=== PATIENT | male | born 1970 | race Caucasian/White ===

== ENCOUNTER 2016-11-29 14:34 | Day surgery (SDC) | payer OTHER ==
[2016-11-25 15:37] VITALS: BMI 31.7
[~2016-11-29 14:34] MED LIST: SODIUM CHLORIDE 0.9% 1,000 ML IV SCH; ceFAZolin 1,000 MG in SODIUM CHLORIDE 0.9% IRRIGATIO 250 ML IRRIGATION ONE; ceFAZolin 2 GM in SODIUM CHLORIDE 0.9% 100 ML IVPB ONE
[2016-11-29 15:24] LABS: Basophils # (A) 0.1 k/uL (0-0.2); Basophils % (A) 1 %; CH 25.8; Eosinophils # (A) 0.2 k/uL (0-0.7); Eosinophils % (A) 2 %; HCT 45.1 % (39.0-53.0); HDW 2.75; HGB 14.8 gm/dL (13.0-17.5); Luc # (Auto) 0.18; Luc % (Auto) 2; Lymphocytes # (A) 2.8 k/uL (1.0-4.8); Lymphocytes % (A) 32 %; MCH 25.9 pg (25.0-35.0); MCHC 32.8 g/dL (31.0-37.0); MCV 78.9 fL (80.0-100.0); Mean Platelet Volume 6.7; Monocytes # (A) 0.5 k/uL (0-1.0); Monocytes % (A) 5 %; Neutrophils # (A) 5.1 k/uL (1.3-7.7); Neutrophils % (A) 59 %; RBC 5.72 m/uL (4.30-5.90); RDW 12.9 % (11.5-15.5); WBC 8.8 k/uL (3.8-10.6); WBC (Perox) 8.76
[2016-11-29] MEDS ORDERED: MIDAZOLAM 2 MG/2 ML VIAL ONE (18:00)
[2016-11-29] MEDS ORDERED: MIDAZOLAM 2 MG/2 ML VIAL IV ONE (18:08)
[2016-11-29] MEDS ORDERED: LIDOCAINE 1% INJ 10MG/ML (20 ML MDV) SQ ONE (18:12)
[2016-11-29] MEDS ORDERED: fentaNYL (PF) 50 MCG/ML 2 ML AMP ONE (18:14)
[2016-11-29] MEDS ORDERED: fentaNYL (PF) 50 MCG/ML 2 ML AMP IV ONE (18:15)
[2016-11-29] MEDS ORDERED: HYDROcodone/APAP 5-325MG 1 EACH TAB PO PRN (18:57)
[2016-11-29] MEDS ORDERED: ACETAMINOPHEN TAB 325 MG TAB PO PRN (18:57)
[2016-11-29] MEDS ORDERED: CYCLOBENZAPRINE 10 MG TAB PO PRN (18:59)
[2016-11-29] MEDS ORDERED: ACETAMINOPHEN IV (For NPO) 1,000 MG in EMPTY BAG 1 BAG IVPB ONE (20:00)
--- NOTE | 2016-11-29 20:14 | PCN ---
DATE OF PROCEDURE: Mr. Jose Barrera has a history of sick sinus syndrome and recurrent syncope. He underwent dual-chamber pacemaker implantation in 2009 when he presented with syncope. His device is at end-of-life, EOL, and he is brought in for dual-chamber pacemaker generator change. The patient was brought to the EP lab in a fasting state. Written informed consent was obtained prior to the procedure. The left shoulder area was prepped and draped as per protocol. Lidocaine 1% was used for local anesthesia. A 4 cm incision was made parallel to the previous incision and carried down to the level of the generator. The generator was explanted and partial capsulectomy was performed. The pocket was irrigated. Hemostasis was assured. The old generator was explanted. This was a [employer] model #P150VR, serial #[id number], normal battery depletion. The newly implanted dual-chamber pacemaker generator was [employer]v Accolade DR, model #L310, serial #[id number]. The device was placed in the subfascial pocket. The wound was closed in 3 layers and dressed per protocol. The leads were interrogated. The chronic atrial lead was a CapSure Fix Novus bipolar lead, model #5076, serial #[id number]. The P-waves were 6.3 mV, pacing threshold 0.8 v at 0.5 ms. Pacing impedance of 503 ohms. The RV lead was a CapSure Fix Novus, model#5076, serial #[id number]. R-waves 23 mV, pacing threshold 0.9 v at 0.5 ms. Pacing impedance of 529 ohms. The device was then programmed to DDD mode 50:140 ( )m with a long AV delay with AV ( ) to minimize RV pacing. Patient predominantly requires atrial pacing intermittently. He has been pacing the atrium about 12% of the time for sick sinus syndrome. He tolerated the procedure well without any acute complications.
--- NOTE | 2016-11-29 20:26 | LTR ---
November 29, 2016 RE: Jose Barrera Dear Cristobal, I had the pleasure of seeing Mr. Jose Barrera in electrophysiology followup. As you know, Mr. Barrera has sick sinus syndrome with syncope, status post dual-chamber pacemaker implantation which has now a depleted battery. He underwent successful dual-chamber pacemaker generator change without any acute complications. He will remain in the hospital for 24 hours and will receive IV antibiotics. All his home medications will be continued without any changes and he will follow up in the pacemaker clinic in about 5 days. He will continue to follow up with you for his other medical needs. Thank you for entrusting me with the care of your patient. Warm regards. Sincerely, MYRANDA TATE MD
[2016-11-29] MEDS ORDERED: ATORVASTATIN 40 MG TAB PO SCH (21:00)
[2016-11-29] MEDS: GABAPENTIN 300 MG CAP PO SCH (21:01)
[2016-11-29] MEDS: ceFAZolin 2 GM in SODIUM CHLORIDE 0.9% 100 ML IVPB SCH (23:36)
[2016-11-30] MEDS: ceFAZolin 2 GM in SODIUM CHLORIDE 0.9% 100 ML IVPB SCH ×3 (05:24→17:16)
[2016-11-30] MEDS ORDERED: LEVOTHYROXINE 75 MCG TAB PO SCH (06:30)
--- NOTE | 2016-11-30 08:17 | P.DS ---
Providers Attending physician: Pritesh Gomez Primary care physician: [facility] Course: Patient is doing well. No chest discomfort mild soreness over the pacemaker generator site. Breath sounds are normal no cough no phlegm no dizziness no chest pain On examination Normal heart sounds normal S1 normal S2 no murmurs no gallops Breath sounds are normal no rhonchi no crackles Soft abdomen No hematoma the pacemaker generator site Impression Sick sinus syndrome with syncope status post permanent pacemaker Pacemaker at EOL Successful generator change yesterday Dyslipidemia Plan Discharge home after IV antibiotics and follow-up in 5 days in the pacemaker clinic in follow-up with Dr. Motley in 4 months Plan - Discharge Summary Discharge Medication List Atorvastatin [Lipitor] 40 mg PO HS 07/02/14 [History] Levothyroxine Sodium [Synthroid] 75 mcg PO DAILY 07/02/14 [History] Lisinopril [Zestril] 10 mg PO DAILY 07/02/14 [History] Cyclobenzaprine [Flexeril] 10 mg PO TID PRN 09/03/15 [History] Fluticasone Propionate [Flonase Allergy Relief] 1 spray EA NOSTRIL DAILY PRN [History] Gabapentin [Neurontin] 600 mg PO BID 09/03/15 [History] HYDROcodone/APAP 7.5-325MG [[place] 7.5-325] 1 tab PO Q6HR PRN 09/03/15 [History] Ibuprofen [Motrin] 800 mg PO Q8HR PRN 09/03/15 [History] Activity/Diet/Wound Care/Special Instructions: PATIENT EDUCATION MATERIAL Instructions following a heart rhythm device implant. 1. Keep dressing DRY for ONE week. You may cover the area with Saran or Cling Wrap, prior to a shower. 2. The dressing will be removed after one week in the Device Clinic @ [facility]. Absorbable sutures were used to close the wound. 3. Avoid raising the [left] arm above the shoulder level. [1 week restriction] 4. Avoid arm movements, like backscratching, rubbing the head, or pulling on a cord. (1 weeks restriction) 5. Gentle range of motion movements of the shoulder, closest to the incision should be performed to avoid a frozen shoulder. (Pendulum exercises of the shoulder) 6. The opposite arm may be used freely. 7. Avoid driving for 7 days. 8. Avoid activities such as golfing, swimming, weed whacking, lifting more than 10 pounds weight, bowling, gymnastics and weight training/lifting. (6 weeks restriction) 9. Activities such as wood chopping with an axe, pull-ups in the gymnasium, power lifting, arc-welding, being close to home induction cooktops will always be a problem. In case of any problems, please call [facility], [place], @ [phone], Attention: Device Clinic Follow-up in 5 days in the device clinic Follow Dr. Motley and the device clinic in about 4 months once again Continue all home medications without any changes
[2016-11-30] MEDS: GABAPENTIN 300 MG CAP PO SCH (08:18)
[2016-11-30 08:30] VITALS: RESP 18
[2016-11-30] MEDS ORDERED: LISINOPRIL 10 MG TAB PO SCH ×2 (09:00→21:00)
[2016-11-30] MEDS ORDERED: ATORVASTATIN 40 MG TAB PO SCH (09:15)
[2016-11-30 15:47] VITALS: BP 164/102; PULSE 86; TEMP 99.4
--- NOTE | 2016-12-01 08:14 | P.PCN ---
Preoperative Diagnosis: Patient underwent EP procedure under conscious sedation/moderate sedation, monitoring of the level of consciousness and physiologic parameters including but not limited to vital signs and oxygenation. Start time: 1811 Stop time 1845
== END 2016-11-30 18:45 | disposition home or self-care (01) ==
LOC: CATHEP 14:34 → 3OBS 18:48 → CATHEP 11-30 18:45
PROVIDERS: ATTEND Internal Medicine Clinical Cardiac Electrophysiology
DX: Z45.010 Encounter for checking and testing of cardiac pacemaker pulse generator [battery] (principal); I49.5 Sick sinus syndrome; I10 Essential (primary) hypertension; E78.5 Hyperlipidemia, unspecified; Z79.1 Long term (current) use of non-steroidal anti-inflammatories (NSAID); Z79.891 Long term (current) use of opiate analgesic; Z79.899 Other long term (current) drug therapy; Z87.891 Personal history of nicotine dependence
CPT/HCPCS: 33228; 85025; 99156; 99157 ×2; C1785; J2250; J0690 ×3; J2001; J3010; J0131

== ENCOUNTER → 2017-05-09 | Outpatient (CLI) | payer OTHER ==
--- NOTE | 2017-05-10 07:39 | CT ---
EXAMINATION TYPE: CT lumbar spine wo con DATE OF EXAM: 05/09/2017 COMPARISON: NONE HISTORY: Low back pain worsening over the past year CT DLP: 812 mGycm CONTRAST: Unenhanced CT of the lumbar spine is performed. Unenhanced CT of the lumbar spine was performed. Bone and soft tissue window settings are submitted as well as coronal and sagittal reconstructions. L1-L2: Normal disc space height. No disc herniation protrusion or central stenosis. No facet joint arthropathy. No evidence for foraminal encroachment. L2-L3: Normal disc space height. No disc herniation protrusion or central stenosis. No facet joint arthropathy. No evidence for foraminal encroachment. L3-L4: Mild degenerative disc space narrowing. Circumferential disc bulge with mild effacement ventra l thecal sac. There appears to be bilateral lateral recess stenosis. No prince central stenosis apprec iated at this time. Neural foramina are patent bilaterally. L4-L5: Mild degenerative disc space narrowing. Broad-based disc bulge posteriorly effaces the ventral thecal sac. There is hypertrophy of the ligamentum flavum as well as mild facet joint arthropathy re sulting in mild central stenosis and bilateral lateral recess stenosis. Mild bilateral foraminal encr oachment is identified. L5-S1: Mild degenerative disc space narrowing. Broad-based right paracentral disc bulge effaces the v entral thecal sac and results in right lateral recess stenosis and right foraminal encroachment. No paraspinal masses are identified. Lumbar segments are free if fracture. IMPRESSION: 1. Degenerative disc disease as discussed. 2. Disc bulging at multiple levels greatest at L4-5 where there is evidence of central stenosis. See above.
== END | disposition home or self-care (01) ==
LOC: RADCTMAIN 19:14
PROVIDERS: ATTEND Family Medicine
DX: M48.06 Spinal stenosis, lumbar region (principal); M51.16 Intervertebral disc disorders with radiculopathy, lumbar region
CPT/HCPCS: 72131

== ENCOUNTER 2017-11-29 06:26 | Emergency (ER) | payer OTHER ==
[2017-11-29] MEDS ORDERED: HYDROmorphone 0.5 MG/0.5 ML SYRINGE IVP STA (06:30)
[2017-11-29] MEDS ORDERED: SODIUM CHLORIDE 0.9% 1,000 ML IV STA ×2 (06:30→09:36)
[2017-11-29] MEDS ORDERED: ONDANSETRON 4 MG/2 ML VIAL IVP STA (06:30)
--- NOTE | 2017-11-29 06:34 | ED ---
General Adult HPI - General Source: RN notes reviewed <Tip Mcelroy - Last Filed: 11/29/17 07:21> <Tip Mcdonald - Last Filed: 11/29/17 09:35> - General Stated complaint: abd pain Time Seen by Provider: 11/29/17 06:26 - History of Present Illness Initial comments: This is a 47-year-old male who presents emergency Department complaining of abdominal discomfort nausea vomiting and diarrhea since last night at about 5 PM. Patient denies any fever chills. Patient states the abdominal pain is in the epigastric region. Patient denies any blood in the vomitus patient denies any blood in the diarrhea. Patient denies any previous surgery. Patient denies any drinking history. Patient does have a pacer defibrillator in place. Patient denies any back pain. Patient denies any dysuria hematuria urinary frequency. Patient denies headache patient denies any numbness or weakness. ( Tip Mcelroy) - Related Data Home Medications Medication Instructions Recorded Confirmed Atorvastatin [Lipitor] 40 mg PO HS 07/02/14 11/29/17 Lisinopril [Zestril] 10 mg PO HS 07/02/14 11/29/17 Cyclobenzaprine [Flexeril] 10 mg PO TID PRN 09/03/15 11/29/17 HYDROcodone/APAP 7.5-325MG [[place] 1 tab PO Q8H PRN 09/03/15 11/29/17 7.5-325] Ibuprofen [Motrin] 800 mg PO Q8HR PRN 09/03/15 11/29/17 Gabapentin 800 mg PO BID 11/29/17 11/29/17 Levothyroxine Sodium [Synthroid] 100 mcg PO DAILY 11/29/17 11/29/17 Allergies Allergy/AdvReac Type Severity Reaction Status Date / Time No Known Allergies Allergy Verified 11/29/17 07:36 Review of Systems ROS Other: All systems not noted in ROS Statement are negative. <Tip Mcelroy - Last Filed: 11/29/17 07:21> ROS Other: All systems not noted in ROS Statement are negative. <Tip Mcdonald - Last Filed: 11/29/17 09:35> ROS Statement: Those systems with pertinent positive or pertinent negative responses have been documented in the HPI. Past Medical History Past Medical History: Osteoarthritis (OA), Thyroid Disorder Additional Past Medical History / Comment(s): See Dr Gomez's H&P, DDD, pain mid to lower back with numbness to bilateral legs. History of Any Multi-Drug Resistant Organisms: None Reported Past Surgical History: Orthopedic Surgery, Pacemaker Additional Past Surgical History / Comment(s): left elbow reconstruction as a child, surgery for back lipoma on 06/23/14. Past Anesthesia/Blood Transfusion Reactions: Motion Sickness Additional Past Anesthesia/Blood Transfusion Reaction / Comment(s): no hx blood transfusion Type of Cardiac Device: Permanent Pacemaker Device Placement Date:: 2009 Smoking Status: Former smoker - Past Family History Father Additional Family Medical History / Comment(s): at age 26 from heart problems Mother Family Medical History: No Reported History Additional Family Medical History / Comment(s): states had cabg x3 <Tip Mcelroy - Last Filed: 11/29/17 07:21> General Exam <Tip Mcelroy - Last Filed: 11/29/17 07:21> <Tip Mcdonald - Last Filed: 11/29/17 09:35> - General Exam Comments Initial Comments: GENERAL: Patient is well-developed and well-nourished. Patient is nontoxic and well- hydrated and is in mild distress. ENT: Neck is soft and supple. No significant lymphadenopathy is noted. Oropharynx is clear. Dry mucous membranes. EYES: The sclera were anicteric and conjunctiva were pink and moist. Extraocular movements were intact and pupils were equal round and reactive to light. Eyelids were unremarkable. PULMONARY: Unlabored respirations. Good breath sounds bilaterally. No audible rales rhonchi or wheezing was noted. CARDIOVASCULAR: There is a regular rate and rhythm without any murmurs gallops or rubs. ABDOMEN: Mild epigastric abdominal pain SKIN: Skin is clear with no lesions or rashes and otherwise unremarkable. NEUROLOGIC: Patient is alert and oriented x3. Cranial nerves II through XII are grossly intact. Motor and sensory are also intact. Normal speech, volume and content. Symmetrical smile. MUSCULOSKELETAL: Normal extremities with adequate strength and full range of motion. No lower extremity swelling or edema. No calf tenderness. LYMPHATICS: No significant lymphadenopathy is noted PSYCHIATRIC: Normal psychiatric evaluation. Normal interpersonal interactions appears functionally intact in deals appropriately with others. No signs of depression. No signs of anxiety. (Tip Mcelroy) Vital Signs 11/29/17 11/29/17 06:39 08:25 Temperature 97.3 F L Pulse Rate 65 68 Respiratory 22 16 Rate Blood Pressure 159/90 185/92 O2 Sat by Pulse 100 100 Oximetry Medical Decision Making - Lab Data Result diagrams: 11/29/17 06:31 <Tip Mcelroy - Last Filed: 11/29/17 07:21> - Lab Data Result diagrams: 11/29/17 06:31 11/29/17 08:24 <Tip Mcdonald - Last Filed: 11/29/17 09:35> - Medical Decision Making EKG shows a normal sinus rhythm at 62 bpm PA interval is 156 dresses 84 Q-T intervals 426 QTC is 432. Patient's EKG shows no ST segment elevation or depression or T wave abnormalities are noted. Dr. Mcdonald will be taking over the care of this patient at 7 AM (Tip Mcelroy) - Lab Data Lab Results 11/29/17 11/29/17 11/29/17 Range/Units 06:31 08:24 08:45 WBC 21.1 H (3.8-10.6) k/uL RBC 6.45 H (4.30-5.90) m/uL Hgb 16.1 (13.0-17.5) gm/dL Hct 51.2 (39.0-53.0) % MCV 79.3 L (80.0-100.0) fL MCH 24.9 L (25.0-35.0) pg MCHC 31.5 (31.0-37.0) g/dL RDW 13.6 (11.5-15.5) % Plt Count 310 (150-450) k/uL Neutrophils % 92 % Lymphocytes % 4 % Monocytes % 3 % Eosinophils % 1 % Basophils % 0 % Neutrophils # 19.5 H (1.3-7.7) k/uL Lymphocytes # 0.8 L (1.0-4.8) k/uL Monocytes # 0.6 (0-1.0) k/uL Eosinophils # 0.1 (0-0.7) k/uL Basophils # 0.0 (0-0.2) k/uL Sodium 141 (137-145) mmol/L Potassium 4.4 (3.5-5.1) mmol/L Chloride 104 (98-107) mmol/L Carbon Dioxide 19 L (22-30) mmol/L Anion Gap 18 mmol/L BUN 23 H (9-20) mg/dL Creatinine 0.97 (0.66-1.25) mg/dL Est GFR (MDRD) Af Amer >60 (>60 ml/min/1.73 sqM) Est GFR (MDRD) Non-Af >60 (>60 ml/min/1.73 sqM) Glucose 125 H (74-99) mg/dL Calcium 10.2 (8.4-10.2) mg/dL Total Bilirubin 1.1 (0.2-1.3) mg/dL AST 32 (17-59) U/L ALT 30 (21-72) U/L Alkaline Phosphatase 75 (38-126) U/L Total Protein 7.6 (6.3-8.2) g/dL Albumin 4.8 (3.5-5.0) g/dL Amylase 39 (30-110) U/L Lipase 31 (23-300) U/L Urine Color Yellow Urine Appearance Clear (Clear) Urine pH 7.0 (5.0-8.0) Ur Specific [place] 1.020 (1.001-1.035) Urine Protein 1+ H (Negative) Urine Glucose (UA) Negative (Negative) Urine Ketones 1+ H (Negative) Urine Blood Trace H (Negative) Urine Nitrite Negative (Negative) Urine Bilirubin Negative (Negative) Urine Urobilinogen <2.0 (<2.0) mg/dL Ur Leukocyte Esterase Negative (Negative) Urine RBC 3 (0-5) /hpf Urine WBC 1 (0-5) /hpf Cellular Casts 1 (0) /lpf Urine Mucus Rare H (None) /hpf Disposition <Tip Mcelroy - Last Filed: 11/29/17 07:21> <Tip Mcdonald - Last Filed: 11/29/17 09:35> Clinical Impression: Abdominal pain, Gastroenteritis Disposition: HOME SELF-CARE Condition: Good Instructions: Gastroenteritis (ED) Referrals: Omayra Pastor III, MD [Primary Care Provider] - 1-2 days
[2017-11-29 06:43] VITALS: TEMP 97.3
[2017-11-29 06:51] LABS: Basophils % (A) 0 %; Eosinophils # (A) 0.1 k/uL (0-0.7); Eosinophils % (A) 1 %; HCT 51.2 % (39.0-53.0); HGB 16.1 gm/dL (13.0-17.5); Lymphocytes # (A) 0.8 k/uL (1.0-4.8); Lymphocytes % (A) 4 %; MCH 24.9 pg (25.0-35.0); MCHC 31.5 g/dL (31.0-37.0); MCV 79.3 fL (80.0-100.0); Mean Platelet Volume 8.1; Monocytes # (A) 0.6 k/uL (0-1.0); Monocytes % (A) 3 %; Neutrophils # (A) 19.5 k/uL (1.3-7.7); Neutrophils % (A) 92 %; Platelet Count 310 k/uL (150-450); RBC 6.45 m/uL (4.30-5.90); RDW 13.6 % (11.5-15.5); WBC 21.1 k/uL (3.8-10.6)
--- NOTE | 2017-11-29 07:32 | XR ---
EXAMINATION TYPE: XR KUB DATE OF EXAM: 11/29/2017 7:25 AM CLINICAL HISTORY: Abdominal pain and vomiting for 2 days. TECHNIQUE: Two Upright KUB images of the abdomen are obtained. COMPARISON: None. FINDINGS: Scattered gas is seen in non-distended stomach and small bowel loops. Gas is seen in non-di stended colon. There is dual lead pacemaker. Lung bases are clear. No pneumoperitoneum is identified. No suspicious calcifications are seen. Visualized osseous structures are intact. IMPRESSION: Overall nonobstructive bowel gas pattern.
[2017-11-29 08:25] VITALS: RESP 16
[2017-11-29] MEDS ORDERED: RX INFO: IV CONTRAST WAS GIVEN 1 EACH MISC MISCELLANE PRN (08:33)
[2017-11-29 08:53] LABS: ALT 30 U/L (21-72); AST 32 U/L (17-59); Albumin 4.8 g/dL (3.5-5.0); Alkaline Phosphatase 75 U/L (38-126); Amylase 39 U/L (30-110); Anion Gap 18 mmol/L; Blood Urea Nitrogen 23 mg/dL (9-20); Calcium 10.2 mg/dL (8.4-10.2); Carbon Dioxide 19 mmol/L (22-30); Chloride 104 mmol/L (98-107); Glucose 125 mg/dL (74-99); Lipase 31 U/L (23-300); Potassium 4.4 mmol/L (3.5-5.1); Sodium 141 mmol/L (137-145); Total Bilirubin 1.1 mg/dL (0.2-1.3); Total Protein 7.6 g/dL (6.3-8.2)
[2017-11-29 08:55] LABS: Appearance,Urine Clear (Clear); Bilirubin,Urine Negative (Negative); Blood,Urine Trace (Negative); Cellular Casts,Urine 1 /lpf (0); Color,Urine Yellow; Glucose,Urine (UA) Negative (Negative); Ketones,Urine 1+ (Negative); Leukocyte Esterase,Urine Negative (Negative); Mucus,Urine Rare /hpf; Nitrite,Urine Negative (Negative); Protein,Urine 1+ (Negative); RBC,Urine 3 /hpf (0-5); Urobilinogen,Urine <2.0 mg/dL (<2.0); WBC,Urine 1 /hpf (0-5)
--- NOTE | 2017-11-29 09:32 | CT ---
EXAMINATION TYPE: CT abdomen pelvis w con DATE OF EXAM: 11/29/2017 COMPARISON: NONE HISTORY: Abdominal pain CT DLP: 1518 mGycm CONTRAST: CT scan of the abdomen and pelvis is performed without Oral Contrast and with IV Contrast, patient in jected with 100 ml mL of Omnipaque 300. FINDINGS: LUNG BASES-: No visible nodule. No infiltrate. LIVER/GB: No calcified gallstones. No space occupying hepatic lesion. Biliary tree is of normal ca liber. PANCREAS: No inflammation. No distinct mass. SPLEEN: No splenic enlargement. No lesion seen. ADRENALS: No nodule. No thickening. KIDNEYS/BLADDER: No hydronephrosis. No nephrolithiasis. No distinct renal mass. Urinary bladder g rossly unremarkable. BOWEL: Normal appendix. Normal bowel caliber. Mild small bowel wall thickening may reflect a mild en teritis. Sigmoid diverticulosis without diverticulitis. GENITAL ORGANS: No gross abnormality. LYMPH NODES: No greater than 1cm abdominal or pelvic lymph nodes are appreciated. AORTA: No significant abnormality. OSSEOUS STRUCTURES: No significant abnormality is seen. OTHER: No significant additional abnormality is seen. IMPRESSION: 1. Correlate for mild small bowel enteritis.
[2017-11-29] MEDS ORDERED: FAMOTIDINE 20 MG/2 ML VIAL IV STA (09:36)
[2017-11-29] MEDS ORDERED: MORPHINE SULFATE 4 MG/ML SYRINGE IVP STA (09:36)
[2017-11-29 11:01] VITALS: BP 194/93; PULSE 73
== END 2017-11-29 11:01 | disposition home or self-care (01) ==
LOC: EC 06:26
DX: K52.9 Noninfective gastroenteritis and colitis, unspecified (principal); E07.9 Disorder of thyroid, unspecified; Z87.891 Personal history of nicotine dependence; Z79.899 Other long term (current) drug therapy; Z95.0 Presence of cardiac pacemaker
CPT/HCPCS: 36415; 93005; 80053; 82150; 83690; 85025; 81001; 74018; 74177; 99285; 96374; 96375 ×3; 96361 ×4; J2270; J2405; Q9967; J1170

== ENCOUNTER 2018-04-10 10:36 | Day surgery (SDC) | payer OTHER ==
[2018-04-05 08:52] VITALS: BMI 29.5
[2018-04-10 11:58] LABS: Basophils # (A) 0.1 k/uL (0-0.2); Basophils % (A) 1 %; Eosinophils # (A) 0.3 k/uL (0-0.7); Eosinophils % (A) 4 %; HCT 43.2 % (39.0-53.0); HGB 14.3 gm/dL (13.0-17.5); Lymphocytes # (A) 2.5 k/uL (1.0-4.8); Lymphocytes % (A) 31 %; MCH 25.7 pg (25.0-35.0); MCHC 33.1 g/dL (31.0-37.0); MCV 77.7 fL (80.0-100.0); Mean Platelet Volume 6.8; Monocytes # (A) 0.5 k/uL (0-1.0); Monocytes % (A) 6 %; Neutrophils # (A) 4.6 k/uL (1.3-7.7); Neutrophils % (A) 57 %; Platelet Count 211 k/uL (150-450); RBC 5.56 m/uL (4.30-5.90); RDW 13.7 % (11.5-15.5); WBC 8.1 k/uL (3.8-10.6)
[2018-04-10] MEDS ORDERED: IV FLUID CONTINUATION 1,000 ML IV ONE (12:12)
[2018-04-10] MEDS ORDERED: ISOPROTERENOL 250 MCG/1.25 ML SYR IV ONE (12:18)
[2018-04-10] MEDS ORDERED: fentaNYL (PF) 50 MCG/ML 2 ML AMP ONE (12:18)
[2018-04-10] MEDS ORDERED: MIDAZOLAM 2 MG/2 ML VIAL ONE (12:18)
[2018-04-10] MEDS ORDERED: ceFAZolin IN SWFI 2 GM/20 ML SYRINGE IVP STA (12:22)
[2018-04-10] MEDS ORDERED: LIDOCAINE 2% SYG (PF) 100 MG/5 ML MISCELLANE ONE (12:59)
[2018-04-10] MEDS ORDERED: LACTATED RINGERS 1,000 ML IV ONE (13:50)
[2018-04-10] MEDS ORDERED: IOPAMIDOL-250 50ML BTL IV ONE (14:01)
[2018-04-10] MEDS ORDERED: ACETAMINOPHEN TAB 325 MG TAB PO PRN (14:23)
[2018-04-10] MEDS ORDERED: HYDROcodone/APAP 5-325MG 1 EACH TAB PO PRN (14:23)
[2018-04-10] MEDS ORDERED: ACETAMINOPHEN IV (For NPO) 1,000 MG in EMPTY BAG 1 BAG IVPB ONE (14:23)
[2018-04-10] MEDS ORDERED: FLUTICASONE 50MCG/SPRAY NASAL 16GM EA NOSTRIL PRN (14:27)
[2018-04-10] MEDS ORDERED: CYCLOBENZAPRINE 10 MG TAB PO PRN (14:27)
[2018-04-10 15:12] LABS: Anion Gap 6 mmol/L; Blood Urea Nitrogen 17 mg/dL (9-20); Calcium 8.7 mg/dL (8.4-10.2); Carbon Dioxide 25 mmol/L (22-30); Chloride 110 mmol/L (98-107); Glucose 88 mg/dL (74-99); Potassium 4.3 mmol/L (3.5-5.1); Sodium 141 mmol/L (137-145)
--- NOTE | 2018-04-10 19:05 | CE ---
CARDIAC ELECTROPHYSIOLOGY REPORT Jose Barrera is a 47-year-old male patient who has had supraventricular tachycardia, symptomatic, with dizziness and has had breakthrough episodes on flecainide and AV jeffrey blocking drugs. He is not tolerating high doses of flecainide, either. He is brought in for a diagnostic EP study and possible radiofrequency ablation. Patient was brought to the EP lab in a fasting state. Written informed consent was obtained prior to the procedure. The right groin was prepped and draped as per protocol. Three venous sheaths were placed in the right femoral vein. Via these, 3 diagnostic catheters were positioned in the right heart (high right atrium, His bundle, RV and later in the coronary sinus). Sinus cycle length 851 milliseconds. WA interval 180 milliseconds. QRS 93 milliseconds. QT 380 milliseconds. AH interval 89 milliseconds. HV interval 46 milliseconds. Sinus node recovery times at 600 milliseconds was 1280 milliseconds. Corresponding corrected sinus node recovery time was normal. AV node Wenckebach block 360 milliseconds, VA Wenckebach block 420 milliseconds. No evidence of slow pathway conduction. No delta waves. Atrial extrastimulation and atrial burst stimulation was performed with atrial extrastimulation up to triple extrastimuli from the high right atrium and from the coronary sinus. No tachycardia was induced. Tachycardia was induced with burst stimulation but preferably after Isuprel was started at 2 mcg. It was also easily inducible at a paced cycle length of 360 milliseconds from the high right atrium on 5 mcg of Isuprel. CS pacing was performed. RV pacing was performed. The tachycardia was non-sustained and would terminate spontaneously ending with V. The P waves were at the terminal end of the previous T-wave and therefore the P-wave morphology was not very evident, but it was definitely not a negative P wave in lead V1. His electrogram and the high right atrial electrograms were early electrograms. CS os was a bit late, but the activation pattern in the left atrium was concentric. Atrial fibrillation was also induced, and after 3 to 4 minutes it terminated spontaneously. At the end of the procedure, Isuprel was stopped and all catheters were removed. IMPRESSION: Diagnostic EP study revealing 1) inducible atrial fibrillation, 2) inducible atrial tachycardia, non-sustained, with a concentric activation in the coronary sinus poles in the high right atrium and the His bundle area almost similar in activation times. SUGGEST: 1. Pulmonary vein isolation using cryoablation. 2. Induction of atrial tachycardia on Isuprel with high right atrial pacing and radiofrequency ablation of atrial tachycardia at the same setting with Carto mapping. This procedure will be done with a combination cryo and Carto technique. This was discussed with the patient and his family. Therefore the plan is to start anticoagulation with either Coumadin or one of the newer agents at least 4 to 6 weeks before the planned PVI and atrial tachycardia ablation. During the atrial tachycardia ablation, atrial tachycardia will be induced and the right and the left atrium both will be mapped. MMODL / IJN: [id number] /
[2018-04-10] MEDS: VERAPAMIL SR 180 MG TABLET.ER PO SCH (20:08)
[2018-04-10] MEDS: FLECAINIDE 50 MG TAB PO SCH (20:08)
[2018-04-10] MEDS ORDERED: ATORVASTATIN 40 MG TAB PO SCH (21:00)
[2018-04-10 21:10] VITALS: RESP 16
[2018-04-10] MEDS ORDERED: LOSARTAN 50 MG TAB PO STA (22:42)
[2018-04-11 03:56] VITALS: TEMP 98.4
[2018-04-11] MEDS ORDERED: LEVOTHYROXINE 100 MCG TAB PO SCH (06:30)
[2018-04-11] MEDS: LACTATED RINGERS 1,000 ML IV SCH ×2 (07:54→07:55)
[2018-04-11] MEDS: SODIUM CHLORIDE 0.9% 1,000 ML IV SCH ×2 (07:54→07:55)
[2018-04-11 08:10] VITALS: BP 158/95; PULSE 80
[2018-04-11] MEDS: FLECAINIDE 50 MG TAB PO SCH (09:01)
[2018-04-11] MEDS: VERAPAMIL SR 180 MG TABLET.ER PO SCH (09:01)
--- NOTE | 2018-04-11 13:35 | P.DS ---
Providers Attending physician: Pritesh Gomez Primary care physician: O[facility] Course: Patient is doing well today his blood pressures more in the normal range. Metoprolol was discontinued and calcium channel lexii was begun. Recommended was continued. He underwent a diagnostic EP study which revealed atrial fibrillation as well as atrial tachycardia. He'll be scheduled for a hybrid procedure with cryoablation and CARTO mapping in the future after starting anticoagulation for at least 4-6 weeks prior He denies any chest discomfort no dizziness lightheadedness palpitations. His breathing well his groins of healed well Vitals are stable Blood pressure 135/87 mmHg pulse rate in the 80s afebrile 98.4F head And neck examination is normal Heart sounds are normal Abdomen soft Groins revealed well no hematoma Impression Sick sinus syndrome status post pacemaker implantation the past Paroxysmal atrial fibrillation Paroxysmal atrial tachycardia, symptomatic Plan discharge home on calcium channel lexii discontinue beta blockers scheduled cryoablation of the pulmonary veins and CARTO mapping for atrial tachycardia and ablation. Anticoagulate for 6 weeks prior Patient Condition at Discharge: Stable Plan - Discharge Summary Discharge Rx Participant: No New Discharge Prescriptions: New Verapamil Sr [Isoptin Sr] 180 mg PO DAILY #90 tab Discontinued Metoprolol Succinate [Toprol Xl] 50 mg PO HS No Action Atorvastatin [Lipitor] 40 mg PO HS Cyclobenzaprine [Flexeril] 10 mg PO TID PRN PRN Reason: Muscle Spasm Ibuprofen [Motrin] 800 mg PO TID HYDROcodone/APAP 7.5-325MG [[place] 7.5-325] 1 tab PO Q8H PRN PRN Reason: Pain Levothyroxine Sodium [Synthroid] 100 mcg PO QAM Fluticasone Nasal [place] [Flonase Nasal [place]] 1 spray EA NOSTRIL DAILY PRN PRN Reason: Nasal Congestion Flecainide Acetate 50 mg PO BID Discharge Medication List Atorvastatin [Lipitor] 40 mg PO HS 07/02/14 [History] Cyclobenzaprine [Flexeril] 10 mg PO TID PRN 09/03/15 [History] HYDROcodone/APAP 7.5-325MG [[place] 7.5-325] 1 tab PO Q8H PRN 09/03/15 [History] Ibuprofen [Motrin] 800 mg PO TID 09/03/15 [History] Levothyroxine Sodium [Synthroid] 100 mcg PO QAM 11/29/17 [History] Flecainide Acetate 50 mg PO BID 04/05/18 [History] Fluticasone Nasal [place] [Flonase Nasal [place]] 1 spray EA NOSTRIL DAILY PRN 04/05 [History] Verapamil Sr [Isoptin Sr] 180 mg PO DAILY #90 tab 04/10/18 [Rx] Follow up Appointment(s)/Referral(s): Pritesh Gomez MD [STAFF PHYSICIAN] - 04/13/18 11:30 am Patient Instructions/Handouts: Electrophysiology Study (DC) Care Plan Goals (MU): Post EP study - Ablation instructions 1. Keep access sites dry for 2 days. 2. No heavy lifting or straining for 2 days. 3. Avoid bending the hips repeatedly for 2 days. 4. You may go up and down stairs slowly Call if the following is noted 1. Bleeding, increasing swelling or pain at the access sites. 2. Increasing chest discomfort, especially upon taking a deep breath. 3. Increasing shortness of breath, at rest or with exertion. 4. Undue cough / phlegm 5. Difficulty or pain while swallowing. 6. Pain or change in color in the extremities. 7. Fever, chills, rigors. 8. Increasing headache or neurologic symptoms. 9. Dizziness, fainting, palpitations Stop metoprolol start verapamil SR 180 mg by mouth daily continue flecainide Discharge Disposition: HOME SELF-CARE
== END 2018-04-11 10:43 | disposition home or self-care (01) ==
LOC: CATHEP 10:36 → 3OBS 14:01 → CATHEP 04-11 10:43
PROVIDERS: ATTEND Internal Medicine Clinical Cardiac Electrophysiology
DX: I47.1 Supraventricular tachycardia (principal); I49.5 Sick sinus syndrome; I48.0 Paroxysmal atrial fibrillation; Z95.0 Presence of cardiac pacemaker; Z87.891 Personal history of nicotine dependence; I10 Essential (primary) hypertension; E78.5 Hyperlipidemia, unspecified; E07.9 Disorder of thyroid, unspecified; Z79.890 Hormone replacement therapy; Z79.51 Long term (current) use of inhaled steroids; Z79.1 Long term (current) use of non-steroidal anti-inflammatories (NSAID); Z79.899 Other long term (current) drug therapy
CPT/HCPCS: 93623; 93620; 93613; 80048; 85025; C1894; C1769; C1730 ×2; J2250; J2001; J3010; J0690; Q9966; 93656

== ENCOUNTER 2018-06-26 09:47 | Day surgery (SDC) | payer OTHER ==
[2018-06-20 12:59] VITALS: BMI 31.0
[~2018-06-26 09:47] MED LIST changes: -ceFAZolin 1,000 MG in SODIUM CHLORIDE 0.9% IRRIGATIO 250 ML IRRIGATION ONE; -ceFAZolin 2 GM in SODIUM CHLORIDE 0.9% 100 ML IVPB ONE
[2018-06-26 10:28] LABS: Basophils # (A) 0.1 k/uL (0-0.2); Basophils % (A) 1 %; Eosinophils # (A) 0.2 k/uL (0-0.7); Eosinophils % (A) 3 %; HCT 46.5 % (39.0-53.0); HGB 15.1 gm/dL (13.0-17.5); Lymphocytes # (A) 2.5 k/uL (1.0-4.8); Lymphocytes % (A) 30 %; MCH 25.5 pg (25.0-35.0); MCHC 32.4 g/dL (31.0-37.0); MCV 78.7 fL (80.0-100.0); Mean Platelet Volume 7.1; Monocytes # (A) 0.6 k/uL (0-1.0); Monocytes % (A) 7 %; Neutrophils # (A) 4.8 k/uL (1.3-7.7); Neutrophils % (A) 58 %; Platelet Count 219 k/uL (150-450); RBC 5.91 m/uL (4.30-5.90); WBC 8.4 k/uL (3.8-10.6)
[2018-06-26 10:33] LABS: INR 3.2 (<1.2); Prothrombin Time 28.5 sec (9.0-12.0)
[2018-06-26] MEDS ORDERED: HEPARIN SODIUM,PORCINE 5,000 UNIT/ML 1 ML VIAL ONE (10:45)
[2018-06-26] MEDS ORDERED: MIDAZOLAM 2 MG/2 ML VIAL ONE (10:45)
[2018-06-26] MEDS ORDERED: SUCCINYLCHOLINE CHLORIDE 100 MG/5 ML SYR IV ONE (10:45)
[2018-06-26] MEDS ORDERED: fentaNYL (PF) 50 MCG/ML 2 ML AMP ONE (10:45)
[2018-06-26] MEDS ORDERED: PROTAMINE SULFATE 10 MG/ML 5 ML VIAL IV ONE (10:45)
[2018-06-26] MEDS ORDERED: ISOPROTERENOL 250 MCG/1.25 ML SYR IV ONE (10:45)
[2018-06-26] MEDS ORDERED: PROPOFOL 10 MG/ML 20 ML VIAL IV ONE (10:45)
[2018-06-26] MEDS ORDERED: LIDOCAINE 1% INJ 10MG/ML (20 ML MDV) ONE ×2 (10:45→11:07)
[2018-06-26] MEDS ORDERED: ceFAZolin IN SWFI 2 GM/20 ML SYRINGE IVP STA (10:47)
[2018-06-26] MEDS ORDERED: LIDOCAINE 1% INJ 10MG/ML (20 ML MDV) SQ ONE (11:32)
[2018-06-26] MEDS ORDERED: HEPARIN SOD,PORK IN 0.45% NACL 25,000 UNIT in 0.45% NACL 1 500ML.BAG IV ONE (11:40)
[2018-06-26] MEDS ORDERED: ACETAMINOPHEN TAB 325 MG TAB PO PRN (13:38)
[2018-06-26] MEDS ORDERED: ACETAMINOPHEN IV (For NPO) 1,000 MG in EMPTY BAG 1 BAG IVPB ONE (13:38)
--- NOTE | 2018-06-26 13:38 | P.PCN ---
Preoperative Diagnosis: Diagnosis Atrial fibrillation, paroxysmal symptomatic, refractory to therapy with flecainide Result Successful pulmonary vein isolation of all veins using cryo-ablation Complete entrance block as well as exit block in all 4 veins confirmed Time to effect in the left superior, left inferior and right superior veins less than 40-50 seconds No evidence for phrenic nerve injury Right-sided esophagus Esophageal deflection NO. Esophageal temperature monitoring performed Procedure details Patient was brought to the EP lab in a fasting state. Written informed consent was obtained prior to the procedure. Procedure performed under general anesthesia After initial muscle relaxant use, muscle relaxants were not given thereafter in order to assess phrenic nerve during procedure Dual-chamber pacemaker interrogated and reprogrammed the for the procedure. Pacemaker interrogated and reprogrammed once again at the very end of the procedure Patient prepped and draped as per protocol Full cryo-set up with standard preparation of the cryoablation tools done Femoral Venous access obtained on the right and left groins Venous and arterial Sheaths placed Diagnostic catheters for the high right atrium, phrenic nerve stimulation and pacing, His bundle, RV and coronary sinus placed Intracardiac echo catheter placed Long sheath placed in the right atrium Left and right transseptal catheterization performed under intracardiac echo guidance Intravenous heparin with aCT above 300 Later, catheter positioning and balloon positioning in the left atrium, under intracardiac echo guidance Comprehensive diagnostic EP study Drug infusion Coronary sinus pacing and recording Baseline measurements Sinus cycle length 691 ms, NV 131, QRS 88, QT 384 AH 75, HV 54 Sinus node recovery times at 600 ms were 899 ms. AV node Wenckebach block from the high right atrium 430 ms VA Wenckebach block greater than 600 ms at baseline On Isuprel infusion, AV node Wenckebach block improved to 260 ms when pacing from the coronary sinus Atrial pacing performed from the high right atrium and the coronary sinus RV pacing performed Transseptal catheterization performed RA pressure 16/6/11 LA pressure 19/8/14 Transseptal catheterization performed with standard sheath. The cryoablation sheath was then placed with an over the wire exchange without any acute complications. All 4 pulmonary veins were isolated in the following sequence: Left superior followed by left inferior followed by right superior followed by right inferior The cryo-ablation balloon was placed at the os of each vein 1.5 mL of IV dye was injected to confirm an occluded vein Goal during cryoablation was to achieve complete occlusion of the pulmonary vein , achieve -30C at 30 seconds and achieve -40C at 60 seconds and a time to affect of less than 60-90 seconds, . If not the balloon was repositioned to obtain this result After completion of Cryoblation with durations from 180-240 seconds, entrance block was confirmed with the Attain circular catheter in a roving fashion around the antrum of the pulmonary veins Phrenic nerve pacing was performed from the SVC, right innominate vein area and diaphragm voltage was monitored. Diaphragmatic contractions were also monitored manually for strength of contraction. Parameter goals for each cryo freeze -30C by 30 seconds -40C by 60 seconds Mediated between minus 40-55C Thaw time greater than 10 seconds Balloon visualized by intracardiac echo to ensure that the proximal one third was within the left atrium/antrum The esophagus was intubated. Esophageal Temperature monitoring with a CIRCA catheter formed. Esophageal deflection for hypothermia of the esophagus below 32C Left superior pulmonary vein Single 3 minute cryoablation. Time to effect in less than 40 seconds Left inferior pulmonary vein Single 3 minute cryoablation, time to effect in less than 40 seconds Right superior pulmonary vein, during phrenic nerve pacing 2 cryo lesions 3 minute cryoablation with a time to effect of less than 50 seconds Later a small PVP area. Upon reexamination Second 2 minute cryoablation performed complete isolation Right inferior pulmonary vein, during phrenic nerve pacing Single 3 minute cryoablation At the end of the procedure the Achieve catheter was once again used to check for entrance block as well as exit block Phrenic nerve stimulation was performed to confirm diaphragmatic stimulation the end of the procedure Cine fluoroscopy was performed at the very end of the procedure to confirm movement of both diaphragms with inspiration and expiration At the end of the procedure the patient was extubated Heparin was reversed Venous sheaths were removed and hemostasis assured Procedures performed (PVI - CRYO Ablation) Pacemaker, dual, interrogation with reprogramming before starting the procedure Invasive hemodynamic monitoring while general anesthesia, right femoral arterial line for monitoring and sampling Comprehensive diagnostic EP study CS pacing and recording Catheter the mapping of the tachycardia (NOT 3D mapping) Intracardiac echocardiography Pulmonary vein isolation with transseptal and comprehensive EPS, [id number] Drug Infusion +[id number] Pacemaker, dual, interrogation with reprogramming after completion of the procedure Pacemaker interrogated. Impedances in the 500s for atrial and ventricular leads. Reprogrammed to DDD at 50 PPM. AV delay programmed longer At the end of the procedure pacemaker re-interrogated. Impedances stable as compared to the preprocedure impedances. Rate responsiveness turned on. Long AV delay programmed Anesthesia: GETA Condition: stable
[2018-06-26] MEDS ORDERED: CYCLOBENZAPRINE 10 MG TAB PO PRN (13:40)
[2018-06-26] MEDS ORDERED: IOPAMIDOL-370 100ML BTL INJ ONE (14:23)
[2018-06-26 14:29] VITALS: RESP 16
[2018-06-26] MEDS ORDERED: FAMOTIDINE 20 MG/2 ML VIAL IVP ONE (14:43)
[2018-06-26] MEDS ORDERED: HYDROmorphone 1 MG/ML 1 ML SYRINGE IVP ONE (14:43)
[2018-06-26] MEDS ORDERED: ONDANSETRON 4 MG/2 ML VIAL IVP ONE (14:44)
[2018-06-26] MEDS ORDERED: COLCHICINE 0.6 MG EACH PO ONE (15:30)
[2018-06-26] MEDS ORDERED: WARFARIN 2.5 MG TAB PO SCH (18:00)
[2018-06-26] MEDS: HYDROcodone/APAP 5-325MG 1 EACH TAB PO PRN (18:49)
[2018-06-26] MEDS: FLECAINIDE 50 MG TAB PO SCH (20:51)
[2018-06-26] MEDS: FAMOTIDINE 20 MG TAB PO SCH (20:51)
[2018-06-26] MEDS: COLCHICINE 0.6 MG EACH PO SCH (20:51)
[2018-06-26] MEDS ORDERED: ATORVASTATIN 40 MG TAB PO SCH (21:00)
[2018-06-27] MEDS: HYDROcodone/APAP 5-325MG 1 EACH TAB PO PRN ×2 (03:32→13:42)
[2018-06-27] MEDS ORDERED: LEVOTHYROXINE 112 MCG TAB PO SCH (06:30)
[2018-06-27] MEDS: FAMOTIDINE 20 MG TAB PO SCH (08:43)
[2018-06-27] MEDS: COLCHICINE 0.6 MG EACH PO SCH (08:44)
[2018-06-27] MEDS: FLECAINIDE 50 MG TAB PO SCH (08:44)
[2018-06-27] MEDS ORDERED: VERAPAMIL SR 180 MG TABLET.ER PO SCH (09:00)
[2018-06-27] MEDS ORDERED: LOSARTAN 50 MG TAB PO SCH (09:00)
[2018-06-27 12:05] VITALS: BP 167/114; PULSE 94; TEMP 98.9
--- NOTE | 2018-06-27 15:44 | P.DS ---
Providers Attending physician: Pritesh Gomez Primary care physician: Stated None Hospital Course: Patient is doing better. He still has pleuritic chest discomfort but it is better than yesterday. He is currently on colchicine. Twelve-lead ECG shows normal ST segments. He is status post cryoablation of the pulmonary veins On examination his blood pressure was elevated this morning 160 70 114 and 148/ 99 mmHg and he states that even at home in the late afternoon his blood pressure does go up and Heart sounds S1 and S2 are normal no murmurs without rub Breath sounds are clear no rhonchi no crackles Abdomen soft nontender Groins of healed well. His no hematoma no swelling mild tenderness noted Impression Symptomatic paroxysmal atrial fibrillation drug refractory, status post PVI him a cryoablation Sick sinus syndrome status post permanent pacemaker implantation Postprocedure pleuritic chest discomfort without ECG changes. Intracardiac echo did not show any pericardial effusion at the end of the procedure Plan Colchicine and Pepcid for one week Continue anticoagulation and other antiarrhythmic drugs Increase losartan to 50 mg twice daily, continue other cardiac medications I will see him again in about 2 weeks Patient Condition at Discharge: Stable Plan - Discharge Summary Discharge Rx Participant: No New Discharge Prescriptions: Continue Atorvastatin [Lipitor] 40 mg PO HS Cyclobenzaprine [Flexeril] 10 mg PO TID PRN PRN Reason: Muscle Spasm HYDROcodone/APAP 7.5-325MG [[place] 7.5-325] 1 tab PO Q8H PRN PRN Reason: Pain Fluticasone Nasal [place] [Flonase Nasal [place]] 1 spray EA NOSTRIL DAILY PRN PRN Reason: Nasal Congestion Flecainide Acetate 50 mg PO BID Verapamil Sr [Isoptin Sr] 180 mg PO DAILY #90 tab Warfarin [Coumadin] 5 mg PO SUTUWETHSA Warfarin [Coumadin] 2.5 mg PO MOFR Losartan Potassium 50 mg PO DAILY Levothyroxine Sodium 112 mcg PO DAILY Discharge Medication List Atorvastatin [Lipitor] 40 mg PO HS 07/02/14 [History] Cyclobenzaprine [Flexeril] 10 mg PO TID PRN 09/03/15 [History] HYDROcodone/APAP 7.5-325MG [[place] 7.5-325] 1 tab PO Q8H PRN 09/03/15 [History] Flecainide Acetate 50 mg PO BID 04/05/18 [History] Fluticasone Nasal [place] [Flonase Nasal [place]] 1 spray EA NOSTRIL DAILY PRN 04/05 [History] Verapamil Sr [Isoptin Sr] 180 mg PO DAILY #90 tab 04/10/18 [Rx] Levothyroxine Sodium 112 mcg PO DAILY 06/20/18 [History] Losartan Potassium 50 mg PO DAILY 06/20/18 [History] Warfarin [Coumadin] 2.5 mg PO MOFR 06/20/18 [History] Warfarin [Coumadin] 5 mg PO SUTUWETHSA 06/20/18 [History] Follow up Appointment(s)/Referral(s): Pritesh Gomez MD [STAFF PHYSICIAN] - 2 Weeks (Office will call for an appt) Patient Instructions/Handouts: Electrophysiology Study (DC) Activity/Diet/Wound Care/Special Instructions: Post EP study - Ablation instructions 1. Keep access sites dry for 2 days. 2. No heavy lifting or straining for 2 days. 3. Avoid bending the hips repeatedly for 2 days. 4. You may go up and down stairs slowly Call if the following is noted 1. Bleeding, increasing swelling or pain at the access sites. 2. Increasing chest discomfort, especially upon taking a deep breath. 3. Increasing shortness of breath, at rest or with exertion. 4. Undue cough / phlegm 5. Difficulty or pain while swallowing. 6. Pain or change in color in the extremities. 7. Fever, chills, rigors. 8. Increasing headache or neurologic symptoms. 9. Dizziness, fainting, palpitations No change in medications Continue Coumadin Groin check within 2 weeks attention Justina Mejias/Dr. Motley Follow up with Dr. Motley again in 3-4 months Discharge Disposition: HOME SELF-CARE
[2018-06-27] MEDS ORDERED: WARFARIN 5 MG TAB PO SCH (18:00)
== END 2018-06-27 16:47 | disposition home or self-care (01) ==
LOC: CATHEP 09:47 → 3OBS 17:28 → CATHEP 06-27 16:47
PROVIDERS: ATTEND Internal Medicine Clinical Cardiac Electrophysiology
DX: I48.0 Paroxysmal atrial fibrillation (principal); I49.5 Sick sinus syndrome; Z95.0 Presence of cardiac pacemaker; I10 Essential (primary) hypertension; E78.5 Hyperlipidemia, unspecified; E07.9 Disorder of thyroid, unspecified; R07.81 Pleurodynia; Z79.01 Long term (current) use of anticoagulants; Z79.51 Long term (current) use of inhaled steroids; Z79.899 Other long term (current) drug therapy
CPT/HCPCS: 93005; 85347; 93623; 93662; 93656; 85025; 85610; C1769 ×3; C1894 ×3; C1730 ×3; C1759; C1893; C1733; C1766; J2250; J2720; J1644 ×2; J2405; J2001; J3010; J1170; J0131; J0330; J2704; J0690; Q9967

== ENCOUNTER → 2018-08-08 | Outpatient (CLI) | payer OTHER ==
--- NOTE | 2018-08-08 17:10 | CONS ---
CONSULTATION REASON FOR CONSULTATION: Sleep apnea. Jose is 47. He is coming in for sleep apnea evaluation. The patient has loud snoring. He wakes up gasping for air. His sleep is fragmented and he has excessive daytime sleepiness. Mansfield score is 15. He goes to bed between 7 and 8 p.m. and gets out of bed at 4 a.m. His family members, including his sister who has obstructive sleep apnea, have noted that the patient stops breathing at times, and this has raised a concern about obstructive sleep apnea. He has also a history of chronic atrial fibrillation. The patient has undergone cardiac ablation and currently his rhythm is sinus. No history of CHF. No history of coronary artery disease. No history of any motor vehicle accidents because of feeling drowsy or sleepy. No sleep paralysis, hallucinations or cataplexy. No restlessness in the lower extremities. PAST MEDICAL HISTORY: 1. History of atrial fibrillation, post ablation, successful. 2. Hypothyroidism. 3. Hypertension. 4. Hyperlipidemia. SURGICAL HISTORY: Surgical history includes: 1. Left elbow surgery. 2. Pacemaker insertion. 3. Cardiac ablation. DRUG ALLERGIES: NOT KNOWN. OUTPATIENT MEDICATION LIST: Outpatient medication list includes: 1. Levothyroxine. 2. Lisinopril. 3. Lipitor. 4. Cyclobenzaprine. 5. Coumadin. SOCIAL HISTORY: Nonsmoker. No history of alcoholism. No history of IV drugs. FAMILY HISTORY: The patient's sister has obstructive sleep apnea and she happens to be my patient. REVIEW OF SYSTEMS: Twelve-point review of systems was done. Positive findings were all mentioned above in the history of present illness. Of significance is the absence of any nocturia. No restlessness in the lower extremities. No anxiety or panic attacks. No depression. No heartburn. No grinding of the teeth. No recent weight gain or weight loss. He wakes up frequently throughout the night. He sleeps on his side; unable to sleep on his back. No history of any motor vehicle accident because of feeling drowsy or sleepy. PHYSICAL EXAMINATION: BP 143/102, pulse 90, respirations 16, temperature 98.2, saturation 95% on room air. Weight is 214, height 5 feet 8 inches. Neck size is 15. BMI is 32.5. GENERAL APPEARANCE: Calm, comfortable. Head is atraumatic, normocephalic. Neck is short, supple. Crowding of posterior pharynx with no goiter or neck mass. LUNGS: Clear to auscultation. HEART: Heart sounds are regular rate and rhythm. Normal S1, S2. No S3, S4. No murmurs. ABDOMEN: Soft, nontender. No organomegaly. EXTREMITIES: No edema. No cyanosis or clubbing. NEUROLOGIC: The patient is alert and oriented x3. No focal neurological deficits. PSYCHIATRIC: Negative for anxiety or depression. IMPRESSION: 1. Loud snoring with witnessed apneas and concern about obstructive sleep apnea. The patient is clinically suspected to have obstructive sleep apnea and further investigation is needed. 2. Hypersomnia; Mansfield score of 15. 3. Sleep fragmentation. 4. Loud snoring. 5. History of atrial fibrillation, currently in sinus rhythm post ablation. 6. Hypothyroidism. 7. Hypertension. 8. Hyperlipidemia. PLAN: 1. Encourage weight loss. 2. Sleep in a sidewise body position. 3. Implement good sleep hygiene measures. 4. Proceed with a screening polysomnogram, looking for any significant sleep breathing disorder that needs to be treated at a later stage. MMODL / IJN: [id number] /
== END | disposition home or self-care (01) ==
LOC: SLEEP 13:19
PROVIDERS: ATTEND Internal Medicine Critical Care Medicine
DX: G47.10 Hypersomnia, unspecified (principal); R06.83 Snoring; I48.2 Chronic atrial fibrillation; E03.9 Hypothyroidism, unspecified; I10 Essential (primary) hypertension; E78.5 Hyperlipidemia, unspecified; Z95.0 Presence of cardiac pacemaker; Z98.890 Other specified postprocedural states; Z79.01 Long term (current) use of anticoagulants; Z79.899 Other long term (current) drug therapy
CPT/HCPCS: 99211

== ENCOUNTER 2020-03-27 11:35 | Day surgery (SDC) | payer OTHER ==
[2020-03-26 08:59] VITALS: BMI 26.9
[2020-03-27 12:36] LABS: Basophils # (A) 0.1 k/uL (0-0.2); Basophils % (A) 1 %; Eosinophils # (A) 0.3 k/uL (0-0.7); Eosinophils % (A) 3 %; HCT 44.3 % (39.0-53.0); HGB 14.1 gm/dL (13.0-17.5); Lymphocytes # (A) 2.4 k/uL (1.0-4.8); Lymphocytes % (A) 26 %; MCHC 31.8 g/dL (31.0-37.0); MCV 81.7 fL (80.0-100.0); Mean Platelet Volume 7.9; Monocytes # (A) 0.5 k/uL (0-1.0); Monocytes % (A) 6 %; Neutrophils # (A) 5.7 k/uL (1.3-7.7); Neutrophils % (A) 63 %; Platelet Count 234 k/uL (150-450); RBC 5.42 m/uL (4.30-5.90); RDW 13.5 % (11.5-15.5); WBC 8.9 k/uL (3.8-10.6)
[2020-03-27 12:50] LABS: African American GFR (CKD) >90 (>60 ml/min/1.73 sqM); Anion Gap 5 mmol/L; Blood Urea Nitrogen 14 mg/dL (9-20); Calcium 9.2 mg/dL (8.4-10.2); Carbon Dioxide 25 mmol/L (22-30); Chloride 109 mmol/L (98-107); Glucose 89 mg/dL (74-99); Non-African American GFR(CKD) >90 (>60 ml/min/1.73 sqM); Potassium 4.6 mmol/L (3.5-5.1); Sodium 139 mmol/L (137-145)
[2020-03-27] MEDS ORDERED: SODIUM CHLORIDE 0.9% 1,000 ML IV ONE (12:54)
[2020-03-27 13:34] LABS: Prothrombin Time 19.7 sec (9.0-12.0)
[2020-03-27] MEDS ORDERED: LIDOCAINE 1% INJ 10MG/ML (20 ML MDV) ONE (15:43)
[2020-03-27] MEDS ORDERED: fentaNYL (PF) 50 MCG/ML 2 ML AMP ONE (15:51)
[2020-03-27] MEDS ORDERED: ISOPROTERENOL 250 MCG/1.25 ML SYR IV ONE (15:51)
[2020-03-27] MEDS ORDERED: MIDAZOLAM 2 MG/2 ML VIAL ONE (15:51)
--- NOTE | 2020-03-27 16:01 | P.HPCAR ---
History of Present Illness This is Dr. Gomez dictating an H/P on this patient The patient was interviewed and examined IMPRESSION / ASSESSMENT: Recurrent episodes of palpitations SVT, recurrent symptomatic and drug refractory and associated with dizziness nausea diaphoresis Episodes of syncope He's had in A. fib ablation with cryoablation He is failed calcium channel blockers beta blockers flecainide and [place] History of sick sinus syndrome status post permanent pacemaker implantation, currently has a [place] O-film device History of sinus arrest in 2013 History of hypertension and smoker PLAN: Diagnostic EP study to look for any inducible SVT line if there is no inducible SVT/atrial tachycardia then sinus node modification will be considered Discussed with the patient HPI Recurrent palpitations associated with chest discomfort dizziness nausea diaphoresis Failed medical treatment with antiplatelet drugs as well as AV jeffrey blocking d rugs, multiple History of syncope He denies any fever chills cough expectoration probably symptoms or GI symptoms at this time ROS: No fever chills or rigors, no cough, phlegm or expectoration, no nausea, vomiting or diarrhea, no hematuria, dysuria, no musculoskeletal complaints, no strokes or seizures, no skin lesions. EXAMINATION: Afebrile, respirations normal, pulse is 70s, blood pressure 176. His mercury Normal heart sounds normal S1 normal S2 no murmurs or gallops. Pressors are clear no rhonchi no crackles Abdomen is soft nontender Next and is warm no edema REVIEW OF LABS, ECG & MEDICAL DATA Labs reviewed hemoglobin 14, INR 2.0, sodium 139 potassium 4.6 BUN 14 creatinine 0.7 Physical Exam Vitals: Vital Signs Temp Pulse Resp BP Pulse Ox 03/27/20 12:55 98 F 70 16 124/76 99 Intake and Output 03/27/20 03/27/20 03/27/20 06:59 14:59 22:59 Intake Total 100 Balance 100 Intake: IV 100 Other: Weight 83.9 kg Past Medical History Past Medical History: Hearing Disorder / Deafness, Hyperlipidemia, Hypertension, Musculoskeletal Disorder, Osteoarthritis (OA), Thyroid Disorder Additional Past Medical History / Comment(s): See Dr Gomez's H&P, DDD, Chronic back pain mid with numbness to bilateral legs. History of Any Multi-Drug Resistant Organisms: None Reported Past Surgical History: Orthopedic Surgery, Pacemaker Additional Past Surgical History / Comment(s): Left elbow reconstruction as a child, surgery for back lipoma, Pacemaker replaced in 2017-Medtronic left chest. Past Anesthesia/Blood Transfusion Reactions: Motion Sickness Additional Past Anesthesia/Blood Transfusion Reaction / Comment(s): No hx blood transfusion. Type of Cardiac Device: Permanent Pacemaker Device Placement Date:: Smoking Status: Former smoker - Past Family History Father Additional Family Medical History / Comment(s): at age 26 from heart problems Mother Family Medical History: Cancer Additional Family Medical History / Comment(s): states had cabg x3 Physical Examination Vital Signs Temp Pulse Resp BP Pulse Ox 03/27/20 12:55 98 F 70 16 124/76 99 Intake and Output 03/27/20 03/27/20 03/27/20 06:59 14:59 22:59 Intake Total 100 Balance 100 Intake: IV 100 Other: Weight 83.9 kg Results 03/27/20 12:25 03/27/20 12:25 Coagulation 03/27/20 Range/Units 13:00 PT 19.7 H (9.0-12.0) sec CBC 03/27/20 Range/Units 12:25 WBC 8.9 (3.8-10.6) k/uL RBC 5.42 (4.30-5.90) m/uL Hgb 14.1 (13.0-17.5) gm/dL Hct 44.3 (39.0-53.0) % Plt Count 234 (150-450) k/uL Comprehensive Metabolic Panel 03/27/20 Range/Units 12:25 Sodium 139 (137-145) mmol/L Potassium 4.6 (3.5-5.1) mmol/L Chloride 109 H (98-107) mmol/L Carbon Dioxide 25 (22-30) mmol/L BUN 14 (9-20) mg/dL Creatinine 0.71 (0.66-1.25) mg/dL Glucose 89 (74-99) mg/dL Calcium 9.2 (8.4-10.2) mg/dL Current Medications Generic Name Dose Route Start Last Admin Trade Name Freq PRN Reason Stop Dose Admin Lactated Ringer's 1,000 mls @ 20 mls/hr 03/27/20 06:14 Lactated Ringers IV .Q24H AME Sodium Chloride 1,000 mls @ 20 mls/hr 03/27/20 06:14 Saline 0.9% IV .Q24H AME Cefazolin Sodium 2 mg/ Sodium 50 mls @ 100 mls/hr 03/27/20 15:34 Chloride IVPB 03/27/20 16:03 ONCE STA Intake and Output 03/27/20 03/27/20 03/27/20 06:59 14:59 22:59 Intake Total 100 Balance 100 Intake: IV 100 Other: Weight 83.9 kg Patient Weight 03/28/20 06:59 Weight 83.9 kg 03/27/20 12:25 03/27/20 12:25
[2020-03-27] MEDS ORDERED: LIDOCAINE 1% INJ 10MG/ML (20 ML MDV) SQ ONE (16:21)
[2020-03-27] MEDS ORDERED: HEPARIN SODIUM (1,000 UNIT/ML) 1,000 UNIT in SODIUM CHLORIDE 0.9% 1,000 ML IRRIGATION ONE (18:31)
[2020-03-27] MEDS ORDERED: HYDROcodone/APAP 5-325MG 1 EACH TAB PO PRN (18:41)
[2020-03-27] MEDS ORDERED: ACETAMINOPHEN TAB 325 MG TAB PO PRN (18:41)
[2020-03-27] MEDS ORDERED: ACETAMINOPHEN IV (For NPO) 1,000 MG in EMPTY BAG 1 BAG IVPB ONE (18:41)
[2020-03-27] MEDS ORDERED: BACLOFEN 10 MG TAB PO PRN (18:42)
[2020-03-27] MEDS ORDERED: WARFARIN 2.5 MG TAB PO SCH (18:45)
--- NOTE | 2020-03-27 18:54 | P.PCN ---
Preoperative Diagnosis: electrophysiology Procedure Sinus node modification Phrenic nerve right over the sinus node area Only certain areas of the sinus node were selected for ablation, the areas that did not show stimulation of the phrenic nerve At the end of the procedure, the phrenic nerve was intact Please see full dictation
[2020-03-27] MEDS: LACTATED RINGERS 1,000 ML IV SCH (20:36)
[2020-03-27] MEDS: SODIUM CHLORIDE 0.9% 1,000 ML IV SCH (20:37)
[2020-03-27] MEDS ORDERED: VALSARTAN 80 MG TAB PO SCH (21:00)
[2020-03-27] MEDS ORDERED: VALSARTAN 40 MG TAB PO SCH (21:00)
[2020-03-27] MEDS ORDERED: ATORVASTATIN 40 MG TAB PO SCH (21:00)
--- NOTE | 2020-03-27 23:29 | PCN ---
PROCEDURE NOTE Jose Barrera is a 49-year-old male patient who has recurrent SVT, a very irregular tachycardia with one-to-one conduction, very symptomatic, who has failed multiple AV jeffrey medications as well as antiarrhythmic drugs. He has only undergone cryoablation of the pulmonary veins and has not had any atrial fibrillation. He was brought into the EP lab for a diagnostic EP study to see if he has any atrial tachycardia that is inducible and, if not, then sinus node modification was considered. Patient was brought to the EP lab in a fasting state. Written informed consent was obtained prior to the procedure. The patient has a pacemaker in situ with Medtronic leads and a [place] Teepix generator. This was interrogated. The pacing impedances were documented and the device then reprogrammed VVI 40 beats per minute. At the end of the procedure, the pacemaker was re-interrogated following ablation. P waves 4.2 mV, pacing impedance 382 ohms, R-waves 33.8 mV and pacing impedance 545 ohms. Impedances were stable. Device was reprogrammed to DDDR 50 to 135 bpm. Sinus cycle length 876 milliseconds. [place] interval 179 milliseconds, QRS 95 milliseconds, QT 388 milliseconds. Baseline AH interval 91 milliseconds. Baseline HV interval 40 milliseconds. Sinus node recovery times at 600, 500 and 400 milliseconds were 1095, 1141 and 1327 milliseconds. Corresponding corrected sinus node recovery times were within normal limits. AV node Wenckebach block 340 milliseconds. VA Wenckebach block 600 milliseconds. An EP study was performed in the baseline state with straight pacing, burst stimulation as well as extrastimulation up to double extrastimuli from the high right atrium and from the coronary sinus. Atrial fibrillation was induced for less than 60 seconds with double extrastimuli from the high right atrium; however, had a slow ventricular response. Patient was completely awake at this time. Thereafter, Isuprel was started after there was spontaneous conversion, and on Isuprel burst stimulation was performed from the coronary sinus and from the high right atrium, and double extrastimuli from both sites was performed. A very brief run of atrial fibrillation again with a slow ventricular response was noted, lasting only for less than 10 seconds. There was no evidence for AV jeffrey reentry. No evidence for accessory pathway conduction. No evidence for any inducible atrial tachycardia with one-to-one conduction. However, with burst stimulation on Isuprel, nonsustained atrial tachycardia with a high- to-low sequence was noted. These were short episodes, and the P-wave morphology was very similar to the sinus node morphology. Left bundle branch block aberrancy was also noted with atrial pacing on Isuprel at 300 milliseconds. Thereafter, Isuprel was stopped. Patient was intolerant of Isuprel and was very nauseous. During Isuprel washout, atrial stimulation was once again performed. No SVT was induced. Following that, a decision was made to perform sinus node modification. A detailed sinus node activation map was made. Three-dimensional electroanatomic mapping was performed. A PentVizyy catheter was used for detailed mapping. Following that, an RF ablation catheter was used to perform the ablation. Phrenic nerve stimulation was performed and these points were tagged, but unfortunately just along the posterior aspect of the earliest site of activation of the sinus node phrenic nerve stimulation was present. The phrenic nerve was carefully tagged and RF ablation was applied at the earliest sites where phrenic nerve was not stimulated. Phrenic nerve monitoring was performed during ablation. Further caudally in the area of the morgan terminalis early activation sites were also documented and RF ablation was successfully applied here. The patient tolerated the procedure well without any acute complications. All catheters were then removed. RESULT: Partial ablation of the sinus node (partial sinus node modification) to avoid phrenic nerve injury. The phrenic nerve runs virtually over the sinus node area. RF ablation lesions were delivered but away from the phrenic nerve area. At the end of the procedure, phrenic nerve stimulation was performed and the phrenic nerve was intact. Following that, device was interrogated and reprogrammed. Lead impedances were stable. MMODL / IJN: [id number] /
[2020-03-28] MEDS: LACTATED RINGERS 1,000 ML IV SCH (04:33)
[2020-03-28] MEDS: SODIUM CHLORIDE 0.9% 1,000 ML IV SCH (04:33)
[2020-03-28] MEDS ORDERED: LEVOTHYROXINE 125 MCG TAB PO SCH (06:30)
--- NOTE | 2020-03-28 08:03 | P.DS ---
Providers Attending physician: Pritesh Gomez Primary care physician: Omayra [facility] Course: Patient is doing well. He has mild discomfort in the chest but there is no pericardial rub No JVD groins have healed well no hematoma mild tenderness Heart sounds are normal breath sounds are clear no rhonchi no crackles Abdomen soft nontender Normal S1 normal S2 Impression Diagnostic EP study which revealed a brief self-limiting episode of atrial fibrillation, organized, for less than 60 seconds only No other SVT induced other than nonsustained episodes of the tachycardia that resembled sinus tachycardia Neurocardiogenic syncope Status post pacemaker implantation many years back He underwent sinus node modification but this was limited on account of the 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 area Following ablation, phrenic nerve function was normal Suggest Continue current medications without any changes in discharge home today and follow-up in a week Plan - Discharge Summary Discharge Rx Participant: No New Discharge Prescriptions: Continue Atorvastatin [Lipitor] 40 mg PO HS HYDROcodone/APAP 7.5-325MG [[place] 7.5-325] 1 tab PO Q8H PRN PRN Reason: Pain Warfarin [Coumadin] 5 mg PO MO Warfarin [Coumadin] 3.75 mg PO SUTUWETHFRSA Levothyroxine Sodium 125 mcg PO QAM Baclofen [Lioresal] 10 mg PO TID PRN PRN Reason: Pain Nadolol [Corgard] 20 mg PO DAILY Sertraline HCl [Zoloft] 100 mg PO DAILY Valsartan [Diovan] 80 mg PO HS Discharge Medication List Atorvastatin [Lipitor] 40 mg PO HS 07/02/14 [History] HYDROcodone/APAP 7.5-325MG [[place] 7.5-325] 1 tab PO Q8H PRN 09/03/15 [History] Levothyroxine Sodium 125 mcg PO QAM 06/20/18 [History] Warfarin [Coumadin] 3.75 mg PO SUTUWETHFRSA 06/20/18 [History] Warfarin [Coumadin] 5 mg PO MO 06/20/18 [History] Baclofen [Lioresal] 10 mg PO TID PRN 03/26/20 [History] Nadolol [Corgard] 20 mg PO DAILY 03/26/20 [History] Sertraline HCl [Zoloft] 100 mg PO DAILY 03/26/20 [History] Valsartan [Diovan] 80 mg PO HS 03/26/20 [History] Follow up Appointment(s)/Referral(s): Pritesh Gomez MD [STAFF PHYSICIAN] - 1 Week (Groin check in 1-2 weeks Follow-up with Dr. Gomez/Micki Ferreira/Cassandra Mejias 3-4 months) Activity/Diet/Wound Care/Special Instructions: Post EP study - Ablation instructions 1. Keep access sites dry for 2 days. 2. No heavy lifting or straining for 2 days. 3. Avoid bending the hips repeatedly for 2 days. 4. You may go up and down stairs slowly Call if the following is noted 1. Bleeding, increasing swelling or pain at the access sites. 2. Increasing chest discomfort, especially upon taking a deep breath. 3. Increasing shortness of breath, at rest or with exertion. 4. Undue cough / phlegm 5. Difficulty or pain while swallowing. 6. Pain or change in color in the extremities. 7. Fever, chills, rigors. 8. Increasing headache or neurologic symptoms. 9. Dizziness, fainting, palpitations Discharge Disposition: HOME SELF-CARE
--- NOTE | 2020-03-28 08:05 | P.PRLE ---
RE: Jose Barrera Dear Dr. Pastor Telemetry strips underwent a diagnostic EP study which revealed #1 a brief self-limited episode of organized atrial fibrillation that lasted between 30-60 seconds only. He is already undergone pulmonary vein isolation for atrial fibrillation No sustained SVT was induced Nonsustained runs of SVT that resembled sinus tachycardia, 1 induced He underwent sinus node modification but this was limited on account of the presence of the phrenic nerve right over the sinus node area Ablation was performed along the anterior aspect of the sinus node and just below it to avoid the phrenic nerve In the end of the procedures phrenic nerve function was intact At this time I would continue all current medications without any changes He certainly has severe neurocardiogenic phenomena He had symptoms when the IV line was being placed as well as on Isuprel was given Thank you for entrusting me with the care of the patient Warm regards Sincerely Pritesh Gomez
[2020-03-28 08:24] LABS: INR 1.9 (<1.2); Prothrombin Time 18.8 sec (9.0-12.0)
[2020-03-28] MEDS ORDERED: SERTRALINE 100 MG TAB PO SCH (09:00)
[2020-03-28] MEDS ORDERED: NADOLOL 20 MG TAB PO SCH (09:00)
[2020-03-28 09:47] VITALS: BP 125/91; PULSE 55; RESP 12; TEMP 98.3
[2020-03-31] MEDS ORDERED: WARFARIN 5 MG TAB PO SCH (18:00)
== END 2020-03-28 13:00 | disposition home or self-care (01) ==
LOC: CATHEP 11:35 → 1SOBS 18:25 → CATHEP 03-28 13:00
PROVIDERS: ATTEND Internal Medicine Clinical Cardiac Electrophysiology
DX: I47.1 Supraventricular tachycardia (principal); R55 Syncope and collapse; I20.9 Angina pectoris, unspecified; I10 Essential (primary) hypertension; I49.5 Sick sinus syndrome; E78.5 Hyperlipidemia, unspecified; Z87.891 Personal history of nicotine dependence; H91.90 Unspecified hearing loss, unspecified ear; M19.90 Unspecified osteoarthritis, unspecified site; G89.29 Other chronic pain; M54.9 Dorsalgia, unspecified; E07.9 Disorder of thyroid, unspecified; R20.0 Anesthesia of skin; Z96.89 Presence of other specified functional implants; Z98.890 Other specified postprocedural states; Z80.1 Family history of malignant neoplasm of trachea, bronchus and lung; Z79.01 Long term (current) use of anticoagulants; Z79.890 Hormone replacement therapy; Z79.891 Long term (current) use of opiate analgesic; Z79.899 Other long term (current) drug therapy
CPT/HCPCS: 93623; 93613; 93653; 80048; 85025; 85610 ×2; C1894; C1769 ×2; C1730 ×3; C1731; C1732; J2250; J0690; J2001; J3010; J1644; J0131

== ENCOUNTER 2020-05-29 08:12 | Observation (INO) | payer OTHER ==
[2020-05-29] MEDS ORDERED: NITROGLYCERIN SL TABS 0.4 MG TAB SUBLINGUAL STA (08:23)
--- NOTE | 2020-05-29 08:32 | ED ---
Chest Pain HPI - General Chief Complaint: Chest Pain Stated Complaint: Chest pain Time Seen by Provider: 05/29/20 08:16 Source: patient Mode of arrival: ambulatory Limitations: no limitations - History of Present Illness Initial Comments: Patient is a 49-year-old male, with history of heart disease, pacemaker, presenting to the emergency department via EMS with complaints of chest pain that woke him out of sleep this morning. Patient describes the pain in his lower left chest. He also feels nauseous, keeps saying he "will pass out." He denies any radiation of this time. He also feels short of breath. Patient was given a full-strength aspirin and Zofran and the EMS prior to arrival. Patient states he has been taking his blood pressure medications as prescribed. Patient stated that yesterday he received a pain shot and a shot of steroids for his chronic low back pain. He denies any abdominal pain, vomiting, diarrhea. He denies any recent fever, chills, cough. She denies history of blood clots. There are no further complaints. Upon arrival to the ER, patient was hypertensive, rest of vitals normal. - Related Data Home Medications Medication Instructions Recorded Confirmed Atorvastatin [Lipitor] 40 mg PO HS 07/02/14 05/29/20 HYDROcodone/APAP 7.5-325MG [[place] 1 tab PO Q8H PRN 09/03/15 05/29/20 7.5-325] Levothyroxine Sodium 125 mcg PO QAM 06/20/18 05/29/20 Warfarin [Coumadin] 3.75 mg PO SUTUWETHFRSA 06/20/18 05/29/20 Warfarin [Coumadin] 5 mg PO MO 06/20/18 05/29/20 Baclofen [Lioresal] 10 mg PO TID PRN 03/26/20 05/29/20 Nadolol [Corgard] 20 mg PO DAILY 03/26/20 05/29/20 Sertraline HCl [Zoloft] 100 mg PO DAILY 03/26/20 05/29/20 Valsartan [Diovan] 80 mg PO HS 03/26/20 05/29/20 Allergies Allergy/AdvReac Type Severity Reaction Status Date / Time No Known Allergies Allergy Verified 05/29/20 09:55 Review of Systems ROS Statement: Those systems with pertinent positive or pertinent negative responses have been documented in the HPI. ROS Other: All systems not noted in ROS Statement are negative. EKG Findings - EKG Comments: EKG Findings:: EKG shows normal sinus rhythm, normal ECG, no signs of acute ischemia. Ventricular rate 83, DE interval 188, QTC 390. Past Medical History Past Medical History: Hearing Disorder / Deafness, Hyperlipidemia, Hypertension, Musculoskeletal Disorder, Osteoarthritis (OA), Thyroid Disorder Additional Past Medical History / Comment(s): See Dr Gomez's H&P, DDD, Chronic back pain mid with numbness to bilateral legs. History of Any Multi-Drug Resistant Organisms: None Reported Past Surgical History: Orthopedic Surgery, Pacemaker Additional Past Surgical History / Comment(s): Left elbow reconstruction as a child, surgery for back lipoma, Pacemaker replaced in 2017-[employer]tr[employer] left chest. Past Anesthesia/Blood Transfusion Reactions: Motion Sickness Additional Past Anesthesia/Blood Transfusion Reaction / Comment(s): No hx blood transfusion. Type of Cardiac Device: Permanent Pacemaker Device Placement Date:: Past Psychological History: Anxiety, Depression Smoking Status: Former smoker Past Alcohol Use History: None Reported Past Drug Use History: Marijuana - Past Family History Father Additional Family Medical History / Comment(s): at age 26 from heart problems Mother Family Medical History: Cancer Additional Family Medical History / Comment(s): states had cabg x3 General Exam - General Exam Comments Initial Comments: GENERAL: Patient appears pale, clammy. HEAD: Atraumatic, normocephalic. EYES: Pupils equal round and reactive to light, extraocular movements intact, sclera anicteric, conjunctiva are normal. Eyelids were unremarkable. ENT: TMs normal, nares patent, oropharynx clear without exudates. Moist mucous membranes. NECK: Normal range of motion, supple without lymphadenopathy or JVD. LUNGS: Unlabored respirations. Breath sounds clear to auscultation bilaterally and equal. No wheezes rales or rhonchi. HEART: Regular rate and rhythm without murmurs, rubs or gallops. ABDOMEN: Soft, nontender, normoactive bowel sounds. No guarding, no rebound. No masses appreciated. : Deferred MUSCULOSKELETAL: Normal extremities with adequate strength and normal range of motion, no pitting or edema. No clubbing or cyanosis. NEUROLOGICAL: Patient is alert and oriented x 3. Motor and sensory are also intact. Cranial nerves II through XII grossly intact. Symmetrical smile. Normal speech, normal gait. PSYCH: Normal mood, normal affect. SKIN: Warm, Dry, normal turgor, no rashes or lesions noted. Limitations: no limitations Course Vital Signs 05/29/20 05/29/20 05/29/20 08:21 08:37 08:44 Temperature 97.2 F L Pulse Rate 64 65 Respiratory 22 22 Rate Blood Pressure 180/114 158/115 O2 Sat by Pulse 100 98 Oximetry 05/29/20 09:30 Temperature Pulse Rate 59 L Respiratory 16 Rate Blood Pressure 176/109 O2 Sat by Pulse 98 Oximetry Chest [facility] Patient is a 49-year-old male with history of pacemaker, presenting with chest pain that started this morning, woke him up from sleep. He is also nauseous, lightheaded. He was given full-strength aspirin and Zofran and EMS prior to arrival. He was hypertensive upon arrival, otherwise normal vitals. EKG shows normal sinus rhythm, no signs of acute ischemia. Chest x-ray shows no acute process. Lab work shows a normal troponin, normal BNP, d-dimer negative. Patient does have leukocytosis at 19.7 however feel this is secondary to his recent steroid injection, he has no signs of a acute infection. Patient was given a nitro and morphine for his discomfort. He has been resting comfortably. Patient will be admitted for serial troponins, cardiac consult. Patient was accepted by Dr. Harris. Patient agrees with this plan of care. Case discussed with Dr. Woods. Disposition Clinical Impression: Chest pain Disposition: ADMITTED IP TO THIS HOSP Condition: Stable Referrals: Omayra Pastor III, MD [Primary Care Provider] - 1-2 days Decision Date: 05/29/20 Decision Time: 09:51
[2020-05-29] MEDS ORDERED: MORPHINE SULFATE 4 MG/ML SYRINGE IVP STA (08:46)
[2020-05-29 09:01] LABS: Basophils # (A) 0.1 k/uL (0-0.2); Basophils % (A) 0 %; Eosinophils # (A) 0.2 k/uL (0-0.7); Eosinophils % (A) 1 %; HCT 51.5 % (39.0-53.0); HGB 16.6 gm/dL (13.0-17.5); Lymphocytes # (A) 3.2 k/uL (1.0-4.8); Lymphocytes % (A) 16 %; MCH 25.5 pg (25.0-35.0); MCHC 32.3 g/dL (31.0-37.0); MCV 78.9 fL (80.0-100.0); Monocytes % (A) 5 %; Neutrophils # (A) 15.2 k/uL (1.3-7.7); Neutrophils % (A) 77 %; Platelet Count 271 k/uL (150-450); RBC 6.53 m/uL (4.30-5.90); RDW 13.6 % (11.5-15.5); WBC 19.7 k/uL (3.8-10.6)
[2020-05-29 09:03] LABS: ALT 43 U/L (4-49); AST 41 U/L (17-59); African American GFR (CKD) >90 (>60 ml/min/1.73 sqM); Albumin 4.9 g/dL (3.5-5.0); Alkaline Phosphatase 77 U/L (38-126); Anion Gap 10 mmol/L; Blood Urea Nitrogen 24 mg/dL (9-20); Calcium 10.1 mg/dL (8.4-10.2); Carbon Dioxide 20 mmol/L (22-30); Chloride 110 mmol/L (98-107); Glucose 137 mg/dL (74-99); Magnesium 1.9 mg/dL (1.6-2.3); Non-African American GFR(CKD) 87 (>60 ml/min/1.73 sqM); Potassium 5.1 mmol/L (3.5-5.1); Sodium 140 mmol/L (137-145); Total Bilirubin 1.1 mg/dL (0.2-1.3); Total Protein 7.7 g/dL (6.3-8.2)
[2020-05-29 09:10] LABS: D-Dimer 0.28 mg/L FEU (<0.60); INR 2.1 (<1.2); Partial Thromboplastin Time 31.1 sec (22.0-30.0); Prothrombin Time 20.4 sec (9.0-12.0)
--- NOTE | 2020-05-29 09:21 | XR ---
EXAMINATION TYPE: XR chest 2V DATE OF EXAM: 05/29/2020 COMPARISON: 06/21/2013 TECHNIQUE: PA and lateral views submitted. HISTORY: S pain FINDINGS: The lungs are clear and there is no pneumothorax, pleural effusion, or focal pneumonia. Cardiac dev ice. Heart size normal with no overt failure. Hypertrophic and degenerative change of the spine. IMPRESSION: 1. No acute process.
[2020-05-29] MEDS ORDERED: hydrALAZINE HCL 20 MG/ML 1 ML VIAL IVP STA (10:23)
--- NOTE | 2020-05-29 12:21 | P.CRDCN ---
History of Present Illness Consult date: 05/29/20 Requesting physician: Shanika Harris Reason for Consult (text): chest pain Chief complaint: chest pain, shortness of breath, nausea, near syncope History of present illness: This is a 49-year-old gentleman who follows with Dr. Gomez in the office. Has a history of sick sinus syndrome and permanent pacemaker implantation, paroxysmal atrial fibrillation, status post cryoablation in 2017, neurocardiogenic syncope, inappropriate sinus tachycardia, attempted sinus node modification in March 2020 with only partial modification done due to location of phrenic nerve. He also has a history of chronic back pain and was in to see his primary care physician yesterday at which time he received an injection of probably Toradol as well as steroid injection. He presented to the emergency department this morning after he woke up suddenly with chest discomfort. He also had some sweating, nausea, shortness of breath and periods of near syncope. Blood pressure has been quite elevated since presentation running 150s-170s/90s-130. EKG on admission showed normal sinus rhythm. Chest x-ray sh owed no acute process. Labs show white blood cell count 19,700, INR 2.0, normal d-dimer, sodium 140, potassium 5.1, BUN 24, creatinine 1.01, NT proBNP 77 and troponin negative 1. Upon examination patient is sitting up on the stretcher. He is complaining of difficulty urinating. He continues to complain of shortness of breath with nausea and intermittent episodes of near-syncope. The pressure remains elevated. Home medications include Coumadin, valsartan 80 mg by mouth daily at bedtime, Zoloft 100 mg daily, nadolol 20 mg by mouth daily, levothyroxine 125 g daily, [place], Baclofen, and Lipitor 40 mg daily and bedtime. Past Medical History Past Medical History: Hearing Disorder / Deafness, Hyperlipidemia, Hypertension, Musculoskeletal Disorder, Osteoarthritis (OA), Thyroid Disorder Additional Past Medical History / Comment(s): See Dr Gomez's H&P, DDD, Chronic back pain mid with numbness to bilateral legs. History of Any Multi-Drug Resistant Organisms: None Reported Past Surgical History: Orthopedic Surgery, Pacemaker Additional Past Surgical History / Comment(s): Left elbow reconstruction as a child, surgery for back lipoma, Pacemaker replaced in 2017-[employer] left chest. Past Anesthesia/Blood Transfusion Reactions: Motion Sickness Additional Past Anesthesia/Blood Transfusion Reaction / Comment(s): No hx blood transfusion. Type of Cardiac Device: Permanent Pacemaker Device Placement Date:: Past Psychological History: Anxiety, Depression Smoking Status: Former smoker Past Alcohol Use History: None Reported Past Drug Use History: Marijuana - Past Family History Father Additional Family Medical History / Comment(s): at age 26 from heart problems Mother Family Medical History: Cancer Additional Family Medical History / Comment(s): states had cabg x3 Medications and Allergies Home Medications Medication Instructions Recorded Confirmed Type Atorvastatin [Lipitor] 40 mg PO HS 07/02/14 05/29/20 History HYDROcodone/APAP 7.5-325MG [[place] 1 tab PO Q8H PRN 09/03/15 05/29/20 History 7.5-325] Levothyroxine Sodium 125 mcg PO QAM 06/20/18 05/29/20 History Warfarin [Coumadin] 3.75 mg PO SUTUWETHFRSA 06/20/18 05/29/20 History Warfarin [Coumadin] 5 mg PO MO 06/20/18 05/29/20 History Baclofen [Lioresal] 10 mg PO TID PRN 03/26/20 05/29/20 History Nadolol [Corgard] 20 mg PO DAILY 03/26/20 05/29/20 History Sertraline HCl [Zoloft] 100 mg PO DAILY 03/26/20 05/29/20 History Valsartan [Diovan] 80 mg PO HS 03/26/20 05/29/20 History Allergies Allergy/AdvReac Type Severity Reaction Status Date / Time No Known Allergies Allergy Verified 05/29/20 09:55 Physical Exam Vitals: Vital Signs Temp Pulse Resp BP Pulse Ox 05/29/20 11:20 68 154/95 05/29/20 11:00 66 24 163/111 98 05/29/20 10:30 62 14 177/137 98 05/29/20 10:00 59 L 9 L 176/109 98 05/29/20 09:30 59 L 16 176/109 98 05/29/20 08:44 65 22 158/115 98 05/29/20 08:37 180/114 05/29/20 08:21 97.2 F L 64 22 100 Intake and Output 05/28/20 05/29/20 05/29/20 22:59 06:59 14:59 Other: Weight 77.111 kg PHYSICAL EXAMINATION: This is a 49-year-old male in mild distress at the time of my examination. VITAL SIGNS: Blood pressure 154/95, heart rate 68, respirations 24, temp 97.2F. Patient is 98 % on 2 L via nasal cannula. HEENT: Head is atraumatic, normocephalic. Pupils are equal, round. Sclerae anicteric. Conjunctivae are clear. Mucous membranes of the mouth are moist. Neck is supple. There is no elevated jugular venous pressure. No carotid bruit is heard. CHEST EXAMINATION: Clear to auscultation bilaterally. No wheezes rales or rhonchi. Respirations even and nonlabored. HEART EXAMINATION: Heart regular, positive S1 and S2. No S3. No S4. No clicks, rubs or murmurs. ABDOMEN: Soft, nontender. Bowel sounds are heard. No organomegaly noted. EXTREMITIES: 2+ peripheral pulses with no evidence of peripheral edema and no calf tenderness noted. NEUROLOGIC EXAMINATION: Patient is awake, alert and oriented x3. Results 05/29/20 08:32 05/29/20 08:32 Cardiac Enzymes 05/29/20 05/29/20 Range/Units 08:32 08:32 AST 41 (17-59) U/L Troponin I <0.012 (0.000-0.034) ng/mL Coagulation 05/29/20 Range/Units 08:32 PT 20.4 H (9.0-12.0) sec APTT 31.1 H (22.0-30.0) sec CBC 05/29/20 Range/Units 08:32 WBC 19.7 H (3.8-10.6) k/uL RBC 6.53 H (4.30-5.90) m/uL Hgb 16.6 (13.0-17.5) gm/dL Hct 51.5 (39.0-53.0) % Plt Count 271 (150-450) k/uL Comprehensive Metabolic Panel 05/29/20 Range/Units 08:32 Sodium 140 (137-145) mmol/L Potassium 5.1 (3.5-5.1) mmol/L Chloride 110 H (98-107) mmol/L Carbon Dioxide 20 L (22-30) mmol/L BUN 24 H (9-20) mg/dL Creatinine 1.01 (0.66-1.25) mg/dL Glucose 137 H (74-99) mg/dL Calcium 10.1 (8.4-10.2) mg/dL AST 41 (17-59) U/L ALT 43 (4-49) U/L Alkaline Phosphatase 77 (38-126) U/L Total Protein 7.7 (6.3-8.2) g/dL Albumin 4.9 (3.5-5.0) g/dL Current Medications Generic Name Dose Route Start Last Admin Trade Name Freq PRN Reason Stop Dose Admin Aspirin 325 mg 05/30/20 09:00 Aspirin PO DAILY AME Nitroglycerin 0.4 mg 05/29/20 09:49 Nitrostat SUBLINGUAL Q5M PRN Chest Pain Intake and Output 05/28/20 05/29/20 05/29/20 22:59 06:59 14:59 Other: Weight 77.111 kg Patient Weight 05/30/20 06:59 Weight 77.111 kg 05/29/20 08:32 05/29/20 08:32 EKG Interpretations (text) Normal sinus rhythm Assessment and Plan Assessment: #1 chest discomfort, shortness of breath, nausea and near syncope, EKG shows sinus rhythm with no evidence of acute ischemia, troponin negative 1, NT proBNP normal #2 history of sick sinus syndrome and prior sinus arrest, status post permanent pacemaker implantation #3 hypertension, uncontrolled #4 history of paroxysmal A. fib, prior ablation in 2018, anticoagulated on Coumadin #5 inappropriate sinus tachycardia, symptomatic, recent partial sinus node modification #6 history of chronic low back pain #7 history of nicotine dependence #8 hypothyroidism Plan: From cardiology perspective, we will resume home dose of nadolol and valsartan. We will obtain a 2-D echo with Doppler to assess cardiac structure and function. Continue to trend her troponins. Check a TSH. Monitor INR and continue coumadin to keep INR between 2.0 and 3.0. Further recommendations will be made based on clinical findings. ADOBE MAKER note has been reviewed, I agree with a documented findings and plan of care. Patient was seen and examined.
[2020-05-29] MEDS: VALSARTAN 80 MG TAB PO SCH ×2 (14:08→20:10)
[2020-05-29] MEDS: NITROGLYCERIN SL TABS 0.4 MG TAB SUBLINGUAL PRN ×2 (14:48→17:41)
--- NOTE | 2020-05-29 17:48 | ECHOF ---
Referral Reason:chest pain MEASUREMENTS -------- HEIGHT: 175.3 cm WEIGHT: 77.1 kg BP: RVIDd: 3.1 cm (< 3.3) IVSd: 1.1 cm (0.6 - 1.1) LVIDd: 4.4 cm (3.9 - 5.3) LVPWd: 1.2 cm (0.6 - 1.1) EDV(Teich): 90 ml IVSs: 1.3 cm LVIDs: 3.2 cm LVPWs: 1.6 cm %IVS Thck: 16 % ESV(Teich): 40 ml EF(Teich): 56 % %FS: 29 % SV(Teich): 50 ml LA Diam: 3.1 cm (2.7 - 3.8) LALs A4C: 5.2 cm LAAs A4C: 17.5 cm LAESV A-L A4C: 50 ml LAESV MOD A4C: 46 ml LALs A2C: 5.2 cm LAAs A2C: 18.5 cm LAESV A-L A2C: 56 ml LAESV MOD A2C: 52 ml LAESV(A-L): 53 ml LAESV Index (A-L): 27.34 ml/m MV E Cb: 0.78 m/s MV DecT: 193 ms MV Dec [place]: 4.0 m/s MV A Cb: 0.59 m/s MV E/A Ratio: 1.32 MV PHT: 56 ms FINDINGS -------- Paced rhythm. This was a technically good study. LV size, wall thickness and systolic function are normal, with an EF greater than 55%. The left margaret tricular size is normal. The right ventricle is normal in size. The left atrial size is normal. The right atrial size is normal. The aortic valve is trileaflet, and appears structurally normal. No aortic stenosis or regurgitation. Mild mitral regurgitation is present. Mild tricuspid regurgitation present. Right ventricular systolic pressure is normal at < 35 mmHg. There is no pulmonic regurgitation present. The aortic root size is normal. There is no pericardial effusion. CONCLUSIONS -------- 1. LV size, wall thickness and systolic function are normal, with an EF greater than 55%. 2. The left ventricular size is normal. 3. The right ventricle is normal in size. 4. The left atrial size is normal. 5. The right atrial size is normal. 6. Mild mitral regurgitation is present. 7. Mild tricuspid regurgitation present. DENTAL INTERN: Gisel Muller RDCS
[2020-05-29] MEDS ORDERED: WARFARIN 2.5 MG TAB PO SCH (18:00)
[2020-05-29] MEDS ORDERED: BACLOFEN 10 MG TAB PO PRN (18:03)
[2020-05-29] MEDS: ONDANSETRON 4 MG/2 ML VIAL IVP PRN ×2 (18:18→23:49)
[2020-05-29] MEDS: MORPHINE SULFATE 2 MG/ML SYRINGE IVP PRN (18:18)
[2020-05-29 19:49] LABS: T4, Free (Free Thyroxine) 1.66 ng/dL (0.78-2.19)
[2020-05-29] MEDS ORDERED: hydrALAZINE HCL 20 MG/ML 1 ML VIAL IVP PRN (20:27)
[2020-05-29] MEDS ORDERED: ATORVASTATIN 40 MG TAB PO SCH (21:00)
--- NOTE | 2020-05-29 23:53 | P.HPIM ---
History of Present Illness H&P Date: 05/29/20 Chief Complaint: Chest Pain Pt. is a 49-year-old male with known history of hypertension, hyperlipidemia, patient history of cardiac ablation in March 2020 due to atrial fibrillation and history of sick sinus syndrome status post permanent pacemaker placement and history of sinus tachycardia syndrome since childhood but was diagnosed at the age of 40 presents to ER with the complaints of chest pain. Patient states that he woke up with chest pain and associated shortness of breath. Patient felt like skipped beats and nausea and episode of vomiting. Chest pain is mainly left upper chest. Patient felt nauseous and about to pass out. Denied any radiation of the pain. EMS was called and patient was given dose of aspirin and Zofran prior to arrival to ER. Patient does have his history of chronic back pain and had intra-articular steroid shot yesterday. Patient otherwise denies any complaints of fever or chills. No headache or dizziness. No diarrhea or abdominal pain. Denied any recent illnesses. Upon arrival blood pressure was 180/114, pulse ox is 100% on room air. Respiration 22. Laboratory data showed WBC 19.7, hemoglobin 16.6 and platelets 271 INR 2.1 D-dimer is 0.28 Sodium 140, potassium 5.1, BUN 24 and creatinine 1.01 Troponin x3-. proBNP 77 TSH 8.93 and free T4 is 1.66 EKG showed normal sinus rhythm chest x-ray showed no acute process. Review of Systems Constitutional: Patient denies any fever or chills . No generalized weakness or weight loss. Abdomen: Patient denied nausea vomiting and diarrhea and abdominal pain. Cardiovascular: .Patient does have chest pain associated with shortness of breath and palpitations. No leg swelling. Respiratory: patient denied any cough is from production. No shortness of breath Neurologic: Patient denied any numbness or tingling headache. Musculoskeletal: Patient denies any complaints of joint swelling or deformity. Skin: Negative Psychiatric: Negative Endocrine: No heat or cold intolerance. No recent weight gain. Genitourinary: No dysuria or hematuria. All other 14 point ROS negative except the above Past Medical History Past Medical History: Hearing Disorder / Deafness, Hyperlipidemia, Hypertension, Musculoskeletal Disorder, Osteoarthritis (OA), Thyroid Disorder Additional Past Medical History / Comment(s): See Dr Gomez's H&P, DDD, Chronic back pain mid with numbness to bilateral legs. History of Any Multi-Drug Resistant Organisms: None Reported Past Surgical History: Orthopedic Surgery, Pacemaker Additional Past Surgical History / Comment(s): Left elbow reconstruction as a ch ild, surgery for back lipoma, Pacemaker replaced in 2017-[employer] left chest. Past Anesthesia/Blood Transfusion Reactions: Motion Sickness Additional Past Anesthesia/Blood Transfusion Reaction / Comment(s): No hx blood transfusion. Type of Cardiac Device: Permanent Pacemaker Device Placement Date:: Past Psychological History: Anxiety, Depression Smoking Status: Former smoker Past Alcohol Use History: None Reported Past Drug Use History: Marijuana - Past Family History Father Additional Family Medical History / Comment(s): at age 26 from heart problems Mother Family Medical History: Cancer Additional Family Medical History / Comment(s): states had cabg x3 Medications and Allergies Home Medications Medication Instructions Recorded Confirmed Type Atorvastatin [Lipitor] 40 mg PO HS 07/02/14 05/29/20 History HYDROcodone/APAP 7.5-325MG [[place] 1 tab PO Q8H PRN 09/03/15 05/29/20 History 7.5-325] Levothyroxine Sodium 125 mcg PO QAM 06/20/18 05/29/20 History Warfarin [Coumadin] 3.75 mg PO SUTUWETHFRSA 06/20/18 05/29/20 History Warfarin [Coumadin] 5 mg PO MO 06/20/18 05/29/20 History Baclofen [Lioresal] 10 mg PO TID PRN 03/26/20 05/29/20 History Nadolol [Corgard] 20 mg PO DAILY 03/26/20 05/29/20 History Sertraline HCl [Zoloft] 100 mg PO DAILY 03/26/20 05/29/20 History Valsartan [Diovan] 80 mg PO HS 03/26/20 05/29/20 History Allergies Allergy/AdvReac Type Severity Reaction Status Date / Time No Known Allergies Allergy Verified 05/29/20 09:55 Physical Exam Vitals: Vital Signs Temp Pulse Pulse Resp BP BP Pulse Ox 05/29/20 17:49 64 159/97 100 05/29/20 16:06 98.8 F 73 14 148/94 99 05/29/20 15:41 97.2 F L 61 18 158/93 98 05/29/20 15:18 61 18 158/93 98 05/29/20 14:53 67 18 174/106 98 05/29/20 11:20 68 154/95 05/29/20 11:00 66 24 163/111 98 05/29/20 10:30 62 14 177/137 98 05/29/20 10:00 59 L 9 L 176/109 98 05/29/20 09:30 59 L 16 176/109 98 05/29/20 08:44 65 22 158/115 98 05/29/20 08:37 180/114 05/29/20 08:21 97.2 F L 64 22 100 Intake and Output 05/29/20 05/29/20 05/29/20 06:59 14:59 22:59 Other: Voiding Method Toilet # Voids 1 Weight 77.111 kg PHYSICAL EXAMINATION: Patient is lying in the bed comfortably, no acute distress, awake alert and oriented.. HEENT: Normocephalic. Neck is supple. Pupils reactive. Nostrils clear. Oral cavity is moist. Ears reveal no drainage. Neck reveals no JVD, carotid bruits, or thyromegaly. CHEST EXAMINATION: Trachea is central. Symmetrical expansion. Lung forbes clear to auscultation and percussion. CARDIAC: Normal S1, S2 with no gallops. No murmurs ABDOMEN: Soft. Bowel sounds normal. No organomegaly. No abdominal bruits. Extremities: reveal no edema. No clubbing or cyanosis Neurologically awake, alert, oriented x3 with well-coordinated movements. He aring disorder.. No focal deficits noted Skin: No rash or skin lesions. Psychiatric: Coperative. Nonsuicidal. anxious. Musculoskeletal: No joint swelling or deformity. Normal range of motion. Results CBC & Chem 7: 05/29/20 08:32 05/29/20 08:32 Labs: Abnormal Lab Results - Last 24 Hours (Table) 05/29/20 05/29/20 05/29/20 Range/Units 08:32 08:32 08:32 WBC 19.7 H (3.8-10.6) k/uL RBC 6.53 H (4.30-5.90) m/uL MCV 78.9 L (80.0-100.0) fL Neutrophils # 15.2 H (1.3-7.7) k/uL PT 20.4 H (9.0-12.0) sec INR 2.1 H (<1.2) APTT 31.1 H (22.0-30.0) sec Chloride 110 H (98-107) mmol/L Carbon Dioxide 20 L (22-30) mmol/L BUN 24 H (9-20) mg/dL Glucose 137 H (74-99) mg/dL TSH (0.465-4.680) mIU/L // Range/Units 15:08 WBC (3.8-10.6) k/uL RBC (4.30-5.90) m/uL MCV (80.0-100.0) fL Neutrophils # (1.3-7.7) k/uL PT (9.0-12.0) sec INR (<1.2) APTT (22.0-30.0) sec Chloride (98-107) mmol/L Carbon Dioxide (22-30) mmol/L BUN (9-20) mg/dL Glucose (74-99) mg/dL TSH 8.930 H (0.465-4.680) mIU/L Thrombosis Risk Factor Assmnt - DVT/VTE Prophylaxis DVT/VTE Prophylaxis: Pharmacologic Prophylaxis ordered - Choose All That Apply Any of the Below Risk Factors Present?: Yes Each Factor Represents 1 point: Age 41-60 years Other Risk Factors: No Other congenital or acquired thrombophilia - If yes, enter type in comment: No Thrombosis Risk Factor Assessment Total Risk Factor Score: 1 Thrombosis Risk Factor Assessment Level: Low Risk Assessment and Plan Assessment: Chest discomfort associated shortness of breath. evaluate for arrhythmia. ACS ruled out. Sinus tachycardia syndrome with recent sinus node modification. Paroxysmal atrial fibrillation on anticoagulation with Coumadin Uncontrolled hypertension History of sick sinus syndrome and prior cardiac arrest is post permanent pacemaker placement Hypothyroidism Hyperlipidemia Coumadin monitoring Leukocytosis likely due to intra-articular steroid injection yesterday. Chronic low back pain Anxiety/depression History of smoking History of marijuana use Plan: Patient will be continued on telemetry monitoring. Serial EKG and troponin x3-. Patient will continue on home medication include nadolol and valsartan. Cardiology has seen the patient. 2D echocardiogram was ordered. Continue the Coumadin monitoring and therapeutic INR ranges 2-3. Continue to follow closely and further recommendations based on the clinical course. Cardiology is on derek monique. Time with Patient: Greater than 30
[2020-05-30] MEDS: MORPHINE SULFATE 2 MG/ML SYRINGE IVP PRN (03:12)
[2020-05-30] MEDS ORDERED: DOBUTamine DRIP for NUC MED 500 MG in DEXTROSE/WATER 1 250ML.BAG IV ONE (06:00)
[2020-05-30] MEDS ORDERED: LEVOTHYROXINE 125 MCG TAB PO SCH (06:30)
[2020-05-30 07:35] VITALS: RESP 16
[2020-05-30] MEDS: amLODIPine 10 MG TAB PO SCH ×2 (07:53→09:27)
[2020-05-30 08:16] LABS: Basophils # (A) 0.1 k/uL (0-0.2); Basophils % (A) 0 %; Eosinophils % (A) 0 %; HCT 50.1 % (39.0-53.0); HGB 16.4 gm/dL (13.0-17.5); Lymphocytes % (A) 15 %; MCH 26.2 pg (25.0-35.0); MCHC 32.8 g/dL (31.0-37.0); MCV 79.8 fL (80.0-100.0); Mean Platelet Volume 7.6; Monocytes # (A) 1.2 k/uL (0-1.0); Monocytes % (A) 6 %; Neutrophils % (A) 78 %; Platelet Count 250 k/uL (150-450); RBC 6.28 m/uL (4.30-5.90); RDW 13.9 % (11.5-15.5); WBC 20.4 k/uL (3.8-10.6)
[2020-05-30 08:18] LABS: INR 2.4 (<1.2); Prothrombin Time 23.6 sec (9.0-12.0)
[2020-05-30] MEDS ORDERED: ACETAMINOPHEN TAB 325 MG TAB PO PRN (08:28)
[2020-05-30 08:37] LABS: African American GFR (CKD) >90 (>60 ml/min/1.73 sqM); Anion Gap 6 mmol/L; Blood Urea Nitrogen 15 mg/dL (9-20); Calcium 9.4 mg/dL (8.4-10.2); Carbon Dioxide 23 mmol/L (22-30); Chloride 109 mmol/L (98-107); Cholesterol 163 mg/dL (<200); Glucose 112 mg/dL (74-99); HDL Cholesterol 43 mg/dL (40-60); LDL Cholesterol,Calculated 94 mg/dL (0-99); Non-African American GFR(CKD) >90 (>60 ml/min/1.73 sqM); Sodium 138 mmol/L (137-145); Triglycerides 128 mg/dL (<150)
[2020-05-30] MEDS ORDERED: VALSARTAN 160 MG TAB PO SCH (09:00)
[2020-05-30] MEDS ORDERED: ASPIRIN 81 MG PO SCH (09:00)
[2020-05-30] MEDS ORDERED: SERTRALINE 100 MG TAB PO SCH (09:00)
[2020-05-30] MEDS ORDERED: ASPIRIN 325 MG TAB PO SCH (09:00)
--- NOTE | 2020-05-30 10:22 | P.PN ---
Subjective This is a pleasant 49-year-old male who follows in the office with Dr. Gomez denies any further symptoms of chest discomfort. His blood pressure has remained quite elevated through the night. Last evening was 209/125. He was given a dose of IV hydralazine and it came down to 128/84. Repeat this morning 157/104. Laboratory data reviewed, WBC 20.4, hemoglobin 16.4, platelets 250, INR 2.4, sodium 138, potassium 4.0, creatinine 0.76, cardiac enzymes negative 3, LDL 94 and HDL 43. TSH 8.93. Currently maintained on aspirin 81 mg daily, atorvastatin 40 mg at bedtime, nadolol 20 mg daily and valsartan 80 mg at bedtime. Echocardiogram reveals preserved LV systolic function with ejection fraction greater than 55%, mild MR and mild TR. GENERAL: Well-appearing, well-nourished and in no acute distress. NECK: Supple without JVD or thyromegaly. LUNGS: Breath sounds clear to auscultation bilaterally. Respiration equal and unlabored. No wheezes, rales or rhonchi. HEART: Regular rate and rhythm without murmurs, rubs or gallops. S1 and S2 heard. EXTREMITIES: Normal range of motion, no edema. No clubbing or cyanosis. Peripheral pulses intact. ASSESSMENT Chest pain, an acute coronary event has been ruled out. Leukocytosis Sick sinus syndrome and sinus arrest status post permanent pacemaker implantation Hypertension, uncontrolled Paroxysmal atrial fibrillation status post ablation on Coumadin Inappropriate sinus tachycardia, symptomatic with recent sinus node modification Chronic nicotine dependence Hypothyroidism PLAN Increase valsartan to 320 mg, give first dose now. Initiate amlodipine 10 mg daily. Proceed with dobutamine stress echocardiogram as previously ordered. Nurse Practitioner note has been reviewed, I agree with a documented findings and plan of care. Patient was seen and examined. Objective - Vital Signs Vital signs: Vital Signs Temp 98.2 F 05/30/20 07:34 Pulse 62 05/30/20 09:27 Resp 16 05/30/20 07:34 BP 150/93 05/30/20 09:27 Pulse Ox 98 05/30/20 07:34 Intake & Output 05/29/20 05/30/20 05/30/20 18:59 06:59 18:59 Output Total 2 Balance -2 Weight 77.111 kg 77 kg Output: Urine 2 Other: Voiding Method Toilet Toilet # Voids 1 - Labs CBC & Chem 7: 05/30/20 07:58 05/30/20 07:58 Labs: Abnormal Lab Results - Last 24 Hours (Table) 05/29/20 05/30/20 05/30/20 Range/Units 15:08 07:58 07:58 WBC (3.8-10.6) k/uL RBC (4.30-5.90) m/uL MCV (80.0-100.0) fL Neutrophils # (1.3-7.7) k/uL Monocytes # (0-1.0) k/uL PT 23.6 H (9.0-12.0) sec INR 2.4 H (<1.2) Chloride 109 H (98-107) mmol/L Glucose 112 H (74-99) mg/dL TSH 8.930 H (0.465-4.680) mIU/L 05/30/20 Range/Units 07:58 WBC 20.4 H (3.8-10.6) k/uL RBC 6.28 H (4.30-5.90) m/uL MCV 79.8 L (80.0-100.0) fL Neutrophils # 16.0 H (1.3-7.7) k/uL Monocytes # 1.2 H (0-1.0) k/uL PT (9.0-12.0) sec INR (<1.2) Chloride (98-107) mmol/L Glucose (74-99) mg/dL TSH (0.465-4.680) mIU/L
[2020-05-30] MEDS ORDERED: ATROPINE SULFATE 0.1 MG/ML 10ML SYRINGE ONE (10:45)
[2020-05-30 11:24] VITALS: BP 134/88; PULSE 92; TEMP 98.5
--- NOTE | 2020-05-30 12:44 | ECHOS ---
STRESS ECHOCARDIOGRAM LUMASON: Vial INDICATIONS: Chest pain. MEDICATIONS: BASELINE HEART RATE: 63 BASELINE BLOOD PRESSURE: 143/82 MAXIMUM HEART RATE: 143 MAXIMUM BLOOD PRESSURE: 164/68 85% MPHR: 145 100% MPHR: 171 METS: MAXIMUM STAGE REACHED: TOTAL EXERCISE TIME: CLINICAL INFORMATION: Baseline EKG shows sinus rhythm, normal axis, normal intervals. Patient was given intravenous dobutamine over a period of 17 minutes, patient also received 1 mg of atropine, achieving 85% of predicted maximal heart rate without chest pain or diagnostic ST-segment depression. Baseline echo shows normal left ventricular size, wall motion and systolic function. Post dobutamine infusion, there is normal hyperdynamic response of all segments of myocardium noted. CONCLUSION: 1. Negative stress test by EKG criteria. 2. Negative dobutamine echo. MMODL / IJN: [id number] /
[2020-06-02] MEDS ORDERED: WARFARIN 5 MG TAB PO SCH (18:00)
--- NOTE | 2020-06-16 00:13 | P.DS ---
Providers Date of admission: 05/29/20 10:11 Expected date of discharge: 05/30/20 Attending physician: Shanika Harris Consults: 05/29/20 09:49 Consult Physician Urgent Consulting Provider: [facility] Reason/Comments: chest pain Do you want consulting provider notified?: Yes Primary care physician: [facility] Course: Discharge diagnosis Chest discomfort associated shortness of breath. evaluate for arrhythmia. ACS ruled out. negative dobutamine stress echo. Sinus tachycardia syndrome with recent sinus node modification. Paroxysmal atrial fibrillation on anticoagulation with Coumadin Uncontrolled hypertension History of sick sinus syndrome and prior cardiac arrest is post permanent pacemaker placement Hypothyroidism Hyperlipidemia Coumadin monitoring Leukocytosis likely due to intra-articular steroid injection yesterday. Chronic low back pain Anxiety/depression History of smoking History of marijuana use Hospital course Pt. is a 49-year-old male with known history of hypertension, hyperlipidemia, patient history of cardiac ablation in March 2020 due to atrial fibrillation and history of sick sinus syndrome status post permanent pacemaker placement and history of sinus tachycardia syndrome since childhood but was diagnosed at the age of 40 presents to ER with the complaints of chest pain. Patient states that he woke up with chest pain and associated shortness of breath. Patient felt like skipped beats and nausea and episode of vomiting. Chest pain is mainly left upper chest. Patient felt nauseous and about to pass out. Denied any radiation of the pain. EMS was called and patient was given dose of aspirin and Zofran prior to arrival to ER. Patient does have his history of chronic back pain and had intra-articular steroid shot yesterday. Patient otherwise denies any complaints of fever or chills. No headache or dizziness. No diarrhea or abdominal pain. Denied any recent illnesses. Upon arrival blood pressure was 180/114, pulse ox is 100% on room air. Respiration 22. Laboratory data showed WBC 19.7, hemoglobin 16.6 and platelets 271 INR 2.1 D-dimer is 0.28 Sodium 140, potassium 5.1, BUN 24 and creatinine 1.01 Troponin x3-. proBNP 77 TSH 8.93 and free T4 is 1.66 EKG showed normal sinus rhythm chest x-ray showed no acute process. Patient was continued on telemetry monitoring. Serial EKG and troponin x3-. Patient was continued on home medication include nadolol and valsartan. Dose of valsartan was increased to 320 mg daily and added Norvasc. Patient was seen by cardiology and recommended dobutamine stress echocardiogram which showed negative stress test by EKG criteria. Negative dobutamine stress echo. Patient's blood pressure is better controlled now. Denied any complaints of chest pain or shortness of breath. Patient is being discharged home. Follow-up with primary care physician and cardiology as an outpatient. PHYSICAL EXAMINATION: Patient is lying in the bed comfortably, no acute distress, awake alert and oriented.. HEENT: Normocephalic. Neck is supple. Pupils reactive. Nostrils clear. Oral cavity is moist. Ears reveal no drainage. Neck reveals no JVD, carotid bruits, or thyromegaly. CHEST EXAMINATION: Trachea is central. Symmetrical expansion. Lung forbes clear to auscultation and percussion. CARDIAC: Normal S1, S2 with no gallops. No murmurs ABDOMEN: Soft. Bowel sounds normal. No organomegaly. No abdominal bruits. Extremities: reveal no edema. No clubbing or cyanosis Neurologically awake, alert, oriented x3 with well-coordinated movements. Hearing disorder.. No focal deficits noted Skin: No rash or skin lesions. Psychiatric: Coperative. Nonsuicidal. anxious. Musculoskeletal: No joint swelling or deformity. Normal range of motion. ital Signs Temp 98.2 F 05/30/20 07:34 Pulse 62 05/30/20 09:27 Resp 16 05/30/20 07:34 BP 150/93 05/30/20 09:27 Pulse Ox 98 05/30/20 07:34 Intake & Output 05/29/20 05/30/20 05/30/20 18:59 06:59 18:59 Output Total 2 Balance -2 Weight 77.111 kg 77 kg Output: Urine 2 Other: Voiding Method Toilet Toilet # Voids 1 Patient Condition at Discharge: Stable Plan - Discharge Summary Discharge Rx Participant: No New Discharge Prescriptions: New Valsartan [Diovan] 320 mg PO DAILY #30 tab amLODIPine [Norvasc] 10 mg PO DAILY #30 tab Continue Atorvastatin [Lipitor] 40 mg PO HS HYDROcodone/APAP 7.5-325MG [[place] 7.5-325] 1 tab PO Q8H PRN PRN Reason: Pain Warfarin [Coumadin] 5 mg PO MO Warfarin [Coumadin] 3.75 mg PO SUTUWETHFRSA Levothyroxine Sodium 125 mcg PO QAM Baclofen [Lioresal] 10 mg PO TID PRN PRN Reason: Pain Nadolol [Corgard] 20 mg PO DAILY Sertraline HCl [Zoloft] 100 mg PO DAILY Discontinued Valsartan [Diovan] 80 mg PO HS Discharge Medication List Atorvastatin [Lipitor] 40 mg PO HS 07/02/14 [History] HYDROcodone/APAP 7.5-325MG [[place] 7.5-325] 1 tab PO Q8H PRN 09/03/15 [History] Levothyroxine Sodium 125 mcg PO QAM 06/20/18 [History] Warfarin [Coumadin] 3.75 mg PO SUTUWETHFRSA 06/20/18 [History] Warfarin [Coumadin] 5 mg PO MO 06/20/18 [History] Baclofen [Lioresal] 10 mg PO TID PRN 03/26/20 [History] Nadolol [Corgard] 20 mg PO DAILY 03/26/20 [History] Sertraline HCl [Zoloft] 100 mg PO DAILY 03/26/20 [History] Valsartan [Diovan] 320 mg PO DAILY #30 tab 05/30/20 [Rx] amLODIPine [Norvasc] 10 mg PO DAILY #30 tab 05/30/20 [Rx] Follow up Appointment(s)/Referral(s): Pritesh Gomez MD [STAFF PHYSICIAN] - 06/11/20 10:30 am Omayra Pastor III, MD [Primary Care Provider] - 06/02/20 9:30 am Patient Instructions/Handouts: Chest Pain (DC) Discharge Disposition: HOME WITH HOME HEALTH SERVICES
== END 2020-05-30 15:17 | disposition home health service (06) ==
LOC: EC 08:12 → 3SCARD 10:11 → 3NCARDOBS 12:16
PROVIDERS: ADMIT Internal Medicine; ATTEND Internal Medicine
DX: R07.89 Other chest pain (principal); D72.829 Elevated white blood cell count, unspecified; I49.5 Sick sinus syndrome; Z95.0 Presence of cardiac pacemaker; I10 Essential (primary) hypertension; I48.0 Paroxysmal atrial fibrillation; Z79.01 Long term (current) use of anticoagulants; R00.0 Tachycardia, unspecified; E03.9 Hypothyroidism, unspecified; G89.29 Other chronic pain; M54.9 Dorsalgia, unspecified; H91.90 Unspecified hearing loss, unspecified ear; E78.5 Hyperlipidemia, unspecified; M19.90 Unspecified osteoarthritis, unspecified site; E07.9 Disorder of thyroid, unspecified; R20.0 Anesthesia of skin; Z98.890 Other specified postprocedural states; F41.9 Anxiety disorder, unspecified; F32.9 Major depressive disorder, single episode, unspecified; Z87.891 Personal history of nicotine dependence; Z79.890 Hormone replacement therapy; Z79.891 Long term (current) use of opiate analgesic; Z79.899 Other long term (current) drug therapy; Z86.74 Personal history of sudden cardiac arrest
CPT/HCPCS: 93005 ×3; 96375 ×2; 96376 ×2; 96374; 99285; 36415; 93306; 93351; 85379; 84439; 83880; 80061; 80053; 80048; 84443; 83735; 84484; 85025 ×2; 85610 ×2; 85730; 71046; G0378 ×3; J1250; J2270 ×3; J0360; J2405; J0461

== ENCOUNTER → 2021-05-13 | Outpatient (CLI) | payer OTHER ==
--- NOTE | 2021-05-13 08:21 | CT ---
EXAMINATION TYPE: CT brain w con DATE OF EXAM: 05/13/2021 COMPARISON: 07/27/2012 HISTORY: [place], memory loss CT DLP: 945.5 mGycm Automated exposure control for dose reduction was used. CONTRAST: CT scan of the head is performed with IV Contrast, patient injected with 100 mL of Isovue 300. FINDINGS: There is no abnormal enhancing mass or midline shift identified. The ventricles and sulci are within normal limits in size. The globes are intact and the visualized sinuses are clear. IMPRESSION: Negative contrast enhanced head CT exam.
== END | disposition home or self-care (01) ==
LOC: RADCTMAIN 07:32
PROVIDERS: ATTEND Family Medicine
DX: R41.3 Other amnesia (principal)
CPT/HCPCS: 70460; Q9967

== ENCOUNTER 2021-10-21 08:09 | Day surgery (SDC) | payer OTHER ==
[2021-10-05 13:37] VITALS: BMI 26.6
[2021-10-21 09:19] VITALS: RESP 16; TEMP 97.9
[2021-10-21] MEDS ORDERED: LACTATED RINGERS 1,000 ML IV ONE (09:19)
[2021-10-21] MEDS ORDERED: LIDOCAINE 1% (10MG/ML) FOR IV START INTRADERMA ONE (09:19)
[2021-10-21] MEDS ORDERED: PROPOFOL 10 MG/ML 20 ML VIAL IV ONE (09:30)
--- NOTE | 2021-10-21 09:47 | P.PCN ---
Date of Procedure: 10/21/21 Procedure(s) Performed: BRIEF HISTORY: Patient is a 51-year-old pleasant male scheduled for an elective colonoscopy as a part of screening for colorectal neoplasia. PROCEDURE PERFORMED: Colonoscopy. PREOPERATIVE DIAGNOSIS: Screening for colon cancer. IV sedation per Anesthesia. PROCEDURE: After informed consent was obtained, the patient, was brought into the endoscopy unit. IV sedation was administered by Anesthesia under continuous monitoring. Digital rectal examination was normal. Initially the Olympus CF-160 flexible video colonoscope was inserted in the rectum, gradually advanced into the cecum without any difficulty. Careful examination was performed as the scope was gradually being withdrawn. Ileocecal valve and the appendiceal orifice were visualized and appeared normal. Prep was excellent. Mucosa of the cecum, ascending colon, transverse colon, descending colon, sigmoid colon, and rectum appeared normal. The sigmoid diverticulosis. Retroflexion was performed in the rectum and 2 internal hemorrhoids were seen. The patient tolerated the procedure well. IMPRESSION: Normal-appearing colon from rectum to cecum with no evidence of colorectal neoplasia . Scattered sigmoid diverticulosis Grade 2 internal hemorrhoids RECOMMENDATIONS: Findings of this examination were discussed with the patient . as well as his family. He was advised to have a repeat screening colonoscopy in 10 years.
[2021-10-21 10:04] VITALS: BP 127/87; PULSE 55
== END 2021-10-21 10:25 | disposition home or self-care (01) ==
LOC: ORWHC2ENDO 08:09
PROVIDERS: ATTEND Internal Medicine Gastroenterology
DX: Z12.11 Encounter for screening for malignant neoplasm of colon (principal); K57.30 Diverticulosis of large intestine without perforation or abscess without bleeding; K64.1 Second degree hemorrhoids; I10 Essential (primary) hypertension; E78.5 Hyperlipidemia, unspecified; I48.91 Unspecified atrial fibrillation; Z97.2 Presence of dental prosthetic device (complete) (partial); Z79.899 Other long term (current) drug therapy; E07.9 Disorder of thyroid, unspecified; Z79.890 Hormone replacement therapy; Z79.891 Long term (current) use of opiate analgesic
CPT/HCPCS: J2704; G0121; 45378

== ENCOUNTER 2023-12-05 08:06 | Observation (INO) | payer OTHER ==
[2023-12-05] MEDS: ASPIRIN 81 MG PO STA (08:32)
[2023-12-05] MEDS: SODIUM CHLORIDE 0.9% 1,000 ML IV STA (08:32)
--- NOTE | 2023-12-05 08:38 | ED ---
General Adult HPI - General Chief complaint: Chest Pain Stated complaint: Chest Pains Time Seen by Provider: 12/05/23 08:15 Source: patient, RN notes reviewed, old records reviewed Mode of arrival: ambulatory Limitations: no limitations - History of Present Illness Initial comments: Patient is a 53-year-old male who presents emergency department for chest pain. States that approximately 2 AM this morning, he woke up with severe left-sided chest pain with radiation into his arm. He was sweating and felt nauseous. Got up and use the restroom and on the way back felt lightheaded and laid down on the couch where he believes he had a syncopal episode. Woke up afterwards feeling improved but is still having some mild left-sided chest pain. Presents this morning for further evaluation. Still endorses some mild left shoulder chest pain and some tingling in his left arm. Has a history significant for atrial fibrillation, pacemaker, hypertension, hyperlipidemia. Is not on blood thinners. Denies any lower extremity edema, recent blood clots. Denies any current nausea, vomiting, abdominal pain. Denies any fevers, chills, cough, shortness of breath. Presents for further evaluation at this time. Denies any history of cardiac stents. Based on patient's chart, he has a history of sick sinus syndrome with permanent pacemaker In place, paroxysmal atrial fibrillation status post cryoablation in 2018, and a history of neurocardiogenic syncope. - Related Data Home Medications Medication Instructions Recorded Confirmed Atorvastatin [Lipitor] 40 mg PO HS 07/02/14 12/05/23 HYDROcodone/APAP 7.5-325MG [[place] 1 tab PO Q8H PRN 09/03/15 12/05/23 7.5-325] Ivabradine HCl [Corlanor] 7.5 mg PO BID 10/05/21 12/05/23 Levothyroxine Sodium 125 mcg PO QAM 10/05/21 12/05/23 Cyclobenzaprine [Flexeril] 10 mg PO BID PRN 12/05/23 12/05/23 Ibuprofen [Motrin] 800 mg PO Q8H PRN 12/05/23 12/05/23 Mirtazapine 7.5 mg PO HS PRN 12/05/23 12/05/23 Valsartan [Diovan] 320 mg PO HS 12/05/23 12/05/23 Allergies Allergy/AdvReac Type Severity Reaction Status Date / Time No Known Allergies Allergy Verified 12/05/23 11:21 Review of Systems ROS Statement: Those systems with pertinent positive or pertinent negative responses have been documented in the HPI. Review of Systems: CONST: Denies fever EYES: Denies blurry vision ENT: Denies nasal congestion C/V: Endorses chest pain RESP: Denies shortness of breath GI: Denies abdominal pain : Denies dysuria SKIN: Denies rash. MSK: Denies joint pain. NEURO: Denies headache ROS Other: All systems not noted in ROS Statement are negative. Past Medical History Past Medical History: Atrial Fibrillation, Hearing Disorder / Deafness, Hyperlipidemia, Hypertension, Musculoskeletal Disorder, Osteoarthritis (OA), Thyroid Disorder Additional Past Medical History / Comment(s): "Hearts electrical system doesn't work right", DDD, chronic mid back pain with numbness to bilateral legs, hard of hearing. History of Any Multi-Drug Resistant Organisms: None Reported Past Surgical History: Orthopedic Surgery, Pacemaker Additional Past Surgical History / Comment(s): Left elbow reconstruction as a child, surgery for back lipoma, Pacemaker replaced in 2017-[employer] left chest. Past Anesthesia/Blood Transfusion Reactions: Motion Sickness Additional Past Anesthesia/Blood Transfusion Reaction / Comment(s): No hx blood transfusion. Type of Cardiac Device: Permanent Pacemaker Device Placement Date:: Past Psychological History: Anxiety, Depression Smoking Status: Former smoker Past Alcohol Use History: None Reported Past Drug Use History: Marijuana - Past Family History Father Additional Family Medical History / Comment(s): at age 26 from heart problems. Mother Family Medical History: Cancer Additional Family Medical History / Comment(s): CABG X3. General Exam - General Exam Comments Initial Comments: General: Appears in no acute distress. HEAD: Normal with no signs of head trauma. EYES: PERRLA, EOMI, conjunctiva normal, no discharge. ENT: Hearing grossly intact, normal oropharynx. RESPIRATORY: Clear breath sounds bilaterally. No wheezes, rales, or rhonchi. C/V: Regular rate and rhythm. S1 and S2 auscultated, no edema, peripheral pulses 2+ and intact throughout. Chest pain nonreproducible on palpation. ABD: Abd is soft, nontender, nondistended EXT: Normal range of motion, no obvious deformity SKIN: No rashes or lesions observed on exposed skin. NEURO: Alert and oriented x 4. Limitations: no limitations Course Vital Signs 12/05/23 08:07 Temperature 98.1 F Pulse Rate 72 Respiratory 18 Rate Blood Pressure 132/85 O2 Sat by Pulse 97 Oximetry Medical Decision Making - Medical Decision Making Was pt. sent in by a medical professional or institution (, PA, HEALTHCARE SCIENCE SPECIALIST, urgent care, hospital, or skilled nursing...) When possible be specific @ -No Did you speak to anyone other than the patient for history (EMS, parent, family, police, friend...)? What history was obtained from this source @ -No Did you review nursing and triage notes (agree or disagree)? Why? @ -I reviewed and agree with nursing and triage notes Were old charts reviewed (outside hosp., previous admission, EMS record, old EKG, old radiological studies, urgent care reports/EKG's, skilled nursing records)? Report findings @ -Old charts reviewed Differential Diagnosis (chest pain, altered mental status, abdominal pain women, abdominal pain men, vaginal bleeding, weakness, fever, dyspnea, syncope, headache, dizziness, GI bleed, back pain, seizure, CVA, palpatations, mental health, musculoskeletal)? @ -Differential Chest Pain: Stable Angina, Unstable Angina, STEMI, NSTEMI Aortic Dissection, Pneumothorax, Musculoskeletal, Esophageal Spasm GERD, Cholecystitis, Pancreatitis, Zoster, th is is not meant to be an all-inclusive list. Differential Syncope: Valvular disease, hypertrophic cardiomyopathy, pulmonary embolism, tamponade, tachycardia, bradycardia, [place], hypovolemia, hemorrhage, dissection, anemia, intracranial hemorrhage, seizure, hypoglycemia, carbon monoxide poisoning, this is not meant to be an all-inclusive list. EKG interpreted by me (3pts min.). @ -As above X-rays interpreted by me (1pt min.). @ -Chest x-ray reveals no obvious acute cardiopulmonary process. CT interpreted by me (1pt min.). @ -CTA of the chest revealed no evidence of acute PE. U/S interpreted by me (1pt. min.). @ -None done What testing was considered but not performed or refused? (CT, X-rays, U/S, labs)? Why? @ -None What meds were considered but not given or refused? Why? @ -None Did you discuss the management of the patient with other professionals (professionals i.e. DrEz, PA, HEALTHCARE SCIENCE SPECIALIST, lab, RT, psych nurse, child protective services social worker, blade grader operator, teacher, neighborhood conservation officer, employment case manager)? Give summary @ -Discussed with Dr. 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 Consult to cardiology was placed. I also spoke with the admitting team, [facility] ERICK Acosta who accepted the admission for Dr. Arboleda. Was smoking cessation discussed for >3mins.? @ -No Was critical care preformed (if so, how long)? @ -No Were there social determinants of health that impacted care today? How? (Homelessness, low income, unemployed, alcoholism, drug addiction, transportation, low edu. Level, literacy, decrease access to med. care, alf, rehab)? @ -No Was there de-escalation of care discussed even if they declined (Discuss DNR or withdrawal of care, Hospice)? DNR status @ -No What co-morbidities impacted this encounter? (DM, HTN, Smoking, COPD, CAD, Cancer, CVA, ARF, Chemo, Hep., AIDS, mental health diagnosis, sleep apnea, morbid obesity)? @ -A-fib, pacemaker, neurocardiogenic syncope, sick sinus syndrome Was patient admitted / discharged? Hospital course, mention meds given and route, prescriptions, significant lab abnormalities, going to OR and other pertinent info. @ -Based on the patient's presentation and physical exam, presents for continued chest pain multiple hours after initiation of chest pain which seems somewhat typical in nature and a syncopal episode at home. Vital signs are within acceptable limits. Patient did have a slight vagal episode when IV access was obtained. He will be given IV fluids, aspirin and we will attempt nitroglycerin tablets for analgesia of his chest pain. He was in agreement this plan. Cardiopulmonary workup will be obtained. EKG shows no signs of acute ischemia with intermittent PVCs. Patient's chest pain resolved. The nitro tablet was initially administered however he states that only his chronic chest discomfort was present which is present every day, not his acute chest discomfort which resolved on its own. Will hold further nitro at this time. He already received 324 mg of aspirin. Chest x-ray reveals no obvious acute cardiopulmonary process. Laboratory studies remarkable for leukocytosis of 14 of unknown significance. Remainder the patient's labs unremarkable except for slightly elevated D-dimer 0.73. Troponin undetectable. BNP within acceptable limits. Viral swabs negative. On reevaluation, patient remains asymptomatic at this time and stable. Discussed his workup. We will obtain a CT PE. Patient was in agreement this plan. CT PE returned negative for PE. Patient will be admitted at this time. Dr. 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 I was able to speak with him and he saw the patient. Was in agreement the plan for observation admission. Will trend the troponin. Cardiology consulted. I spoke with the admitting team, ERICK Acosta of [facility] who accepted the a dmission. Undiagnosed new problem with uncertain prognosis? @ -No Drug Therapy requiring intensive monitoring for toxicity (Heparin, Nitro, Insulin, Cardizem)? @ -No Were any procedures done? @ -No Diagnosis/symptom? @ -Chest pain, syncope Acute, or Chronic, or Acute on Chronic? @ -Acute Uncomplicated (without systemic symptoms) or Complicated (systemic symptoms)? @ -Complicated Side effects of treatment? @ -None Exacerbation, Progression, or Severe Exacerbation] @ -No Poses a threat to life or bodily function? @ -Yes - Lab Data Result diagrams: 12/05/23 08:34 12/05/23 08:34 Lab Results 12/05/23 12/05/23 12/05/23 Range/Units 08:34 08:34 08:34 WBC 14.4 H (3.8-10.6) k/uL RBC 5.91 H (4.30-5.90) m/uL Hgb 15.4 (13.0-17.5) gm/dL Hct 47.3 (39.0-53.0) % MCV 80.1 (80.0-100.0) fL MCH 26.0 (25.0-35.0) pg MCHC 32.5 (31.0-37.0) g/dL RDW 13.7 (11.5-15.5) % Plt Count 184 (150-450) k/uL MPV 7.7 Neutrophils % 93 % Lymphocytes % 4 % Monocytes % 3 % Eosinophils % 0 % Basophils % 0 % Neutrophils # 13.4 H (1.3-7.7) k/uL Lymphocytes # 0.6 L (1.0-4.8) k/uL Monocytes # 0.4 (0-1.0) k/uL Eosinophils # 0.0 (0-0.7) k/uL Basophils # 0.0 (0-0.2) k/uL PT 10.6 (10.0-12.5) sec INR 1.0 (<1.2) APTT 23.7 (22.0-30.0) sec D-Dimer 0.73 H (<0.60) mg/L FEU Sodium 137 (137-145) mmol/L Potassium 4.5 (3.5-5.1) mmol/L Chloride 109 H (98-107) mmol/L Carbon Dioxide 19 L (22-30) mmol/L Anion Gap 9 mmol/L BUN 20 (9-20) mg/dL Creatinine 0.87 (0.66-1.25) mg/dL Est GFR (CKD-EPI)AfAm >90 (>60 ml/min/1.73 sqM) Est GFR (CKD-EPI)NonAf >90 (>60 ml/min/1.73 sqM) Glucose 113 H (74-99) mg/dL Calcium 9.4 (8.4-10.2) mg/dL Magnesium 1.7 (1.6-2.3) mg/dL Total Bilirubin 1.0 (0.2-1.3) mg/dL AST 40 (17-59) U/L ALT 30 (4-49) U/L Alkaline Phosphatase 73 (38-126) U/L Troponin I (0.000-0.034) ng/mL NT-Pro-B Natriuret Pep 29 pg/mL Total Protein 6.9 (6.3-8.2) g/dL Albumin 4.4 (3.5-5.0) g/dL TSH (0.465-4.680) mIU/L Influenza Type A (PCR) (Not Detectd) Influenza Type B (PCR) (Not Detectd) RSV (PCR) (Not Detectd) SARS-CoV-2 (PCR) (Not Detectd) 12/05/23 12/05/23 12/05/23 Range/Units 08:34 08:34 08:34 WBC (3.8-10.6) k/uL RBC (4.30-5.90) m/uL Hgb (13.0-17.5) gm/dL Hct (39.0-53.0) % MCV (80.0-100.0) fL MCH (25.0-35.0) pg MCHC (31.0-37.0) g/dL RDW (11.5-15.5) % Plt Count (150-450) k/uL MPV Neutrophils % % Lymphocytes % % Monocytes % % Eosinophils % % Basophils % % Neutrophils # (1.3-7.7) k/uL Lymphocytes # (1.0-4.8) k/uL Monocytes # (0-1.0) k/uL Eosinophils # (0-0.7) k/uL Basophils # (0-0.2) k/uL PT (10.0-12.5) sec INR (<1.2) APTT (22.0-30.0) sec D-Dimer (<0.60) mg/L FEU Sodium (137-145) mmol/L Potassium (3.5-5.1) mmol/L Chloride (98-107) mmol/L Carbon Dioxide (22-30) mmol/L Anion Gap mmol/L BUN (9-20) mg/dL Creatinine (0.66-1.25) mg/dL Est GFR (CKD-EPI)AfAm (>60 ml/min/1.73 sqM) Est GFR (CKD-EPI)NonAf (>60 ml/min/1.73 sqM) Glucose (74-99) mg/dL Calcium (8.4-10.2) mg/dL Magnesium (1.6-2.3) mg/dL Total Bilirubin (0.2-1.3) mg/dL AST (17-59) U/L ALT (4-49) U/L Alkaline Phosphatase (38-126) U/L Troponin I <0.012 (0.000-0.034) ng/mL NT-Pro-B Natriuret Pep pg/mL Total Protein (6.3-8.2) g/dL Albumin (3.5-5.0) g/dL TSH 0.768 (0.465-4.680) mIU/L Influenza Type A (PCR) Not Detected (Not Detectd) Influenza Type B (PCR) Not Detected (Not Detectd) RSV (PCR) Not Detected (Not Detectd) SARS-CoV-2 (PCR) Not Detected (Not Detectd) - EKG Data -: EKG Interpreted by Me EKG Comments: 12-lead Electrocardiogram Interpretation Note EKG was reviewed and interpreted by myself. 12-lead ECG performed at 0815 is interpreted by me as revealing sinus rhythm with occasional PVC at a rate of 78 beats per minute. [place] is appears to have slight right axis deviation, VT interval is 140 ms, QRS duration is 91 ms, QTc is 480 ms.. There were no ST or T wave abnormalities to suggest myocardial ischemia or injury. R wave progression across the precordium was satisfactory. By my interpretation this EKG is non-diagnostic for acute ischemia. Disposition Clinical Impression: Chest pain, Syncope Disposition: ADMITTED IP TO THIS HOSP Condition: Stable Time of Disposition: 10:16
[2023-12-05 08:45] LABS: Basophils % (A) 0 %; Eosinophils % (A) 0 %; HCT 47.3 % (39.0-53.0); HGB 15.4 gm/dL (13.0-17.5); Lymphocytes # (A) 0.6 k/uL (1.0-4.8); Lymphocytes % (A) 4 %; MCHC 32.5 g/dL (31.0-37.0); MCV 80.1 fL (80.0-100.0); Mean Platelet Volume 7.7; Monocytes # (A) 0.4 k/uL (0-1.0); Monocytes % (A) 3 %; Neutrophils # (A) 13.4 k/uL (1.3-7.7); Neutrophils % (A) 93 %; Platelet Count 184 k/uL (150-450); RBC 5.91 m/uL (4.30-5.90); RDW 13.7 % (11.5-15.5); WBC 14.4 k/uL (3.8-10.6)
[2023-12-05 08:57] LABS: ALT 30 U/L (4-49); AST 40 U/L (17-59); African American GFR (CKD) >90 (>60 ml/min/1.73 sqM); Albumin 4.4 g/dL (3.5-5.0); Alkaline Phosphatase 73 U/L (38-126); Anion Gap 9 mmol/L; Blood Urea Nitrogen 20 mg/dL (9-20); Calcium 9.4 mg/dL (8.4-10.2); Carbon Dioxide 19 mmol/L (22-30); Chloride 109 mmol/L (98-107); Glucose 113 mg/dL (74-99); Magnesium 1.7 mg/dL (1.6-2.3); Non-African American GFR(CKD) >90 (>60 ml/min/1.73 sqM); Potassium 4.5 mmol/L (3.5-5.1); Sodium 137 mmol/L (137-145); Total Protein 6.9 g/dL (6.3-8.2)
[2023-12-05] MEDS: NITROGLYCERIN SL TABS 0.4 MG TAB SUBLINGUAL STA (09:00)
[2023-12-05 09:02] LABS: Partial Thromboplastin Time 23.7 sec (22.0-30.0); Prothrombin Time 10.6 sec (10.0-12.5)
[2023-12-05 09:05] LABS: NT-Pro-B-Type Natriuretic Pept 29 pg/mL
--- NOTE | 2023-12-05 09:28 | XR ---
EXAMINATION TYPE: XR chest 2V DATE OF EXAM: 12/05/2023 COMPARISON: 05/29/2020 HISTORY: 53-year-old male with chest pain TECHNIQUE: PA and lateral views FINDINGS: Left anterior chest wall pacemaker generator with right atrial and right ventricular leads. Heart nor mal size. Aorta and pulmonary vasculature within normal limits. No consolidation or pleural effusion. IMPRESSION: No acute cardiopulmonary process.
--- NOTE | 2023-12-05 09:55 | CT ---
EXAMINATION TYPE: CT chest angio for PE CT DLP: 386.4 mGycm, Automated exposure control for dose reduction was used. DATE OF EXAM: 12/05/2023 9:45 AM COMPARISON: Chest radiograph from same day. CLINICAL INDICATION:Male, 53 years old with history of eval for PE; EVAL for PE TECHNIQUE/CONTRAST: CTA scan of the thorax is performed without and with IV Contrast, patient injected with 100 ml mL of Isovue 300, MIP images are created and reviewed these are created on a separate workstation.. FINDINGS: Pulmonary Artery: There is no evidence for a filling defect within the pulmonary vasculature to sugge st acute pulmonary embolism. The pulmonary artery is of normal size. Lungs/Pleura: No evidence of focal consolidation, pleural effusion or pneumothorax. Airway: Large airways are patent. Heart: Heart is within normal limits for size. Cardiac conduction leads terminating in the right vent ricle and atrium. Vasculature: No evidence of aortic aneurysm. Mediastinum: No gross evidence of adenopathy. Musculoskeletal: No acute osseous abnormalities Soft Tissues: Unremarkable. Lower neck: No significant findings. Upper Abdomen: No significant findings. IMPRESSION: 1. No evidence of pulmonary embolism.
[2023-12-05] MEDS ORDERED: NALOXONE 0.4 MG/ML 1 ML VIAL IV PRN (10:03)
--- NOTE | 2023-12-05 10:47 | P.HPIM ---
History of Present Illness H&P Date: 12/05/23 History of Presenting Illness: Patient is a very pleasant 53-year-old male with a past medical history of atrial fibrillation status postcardiac ablation not on anticoagulation, history sick sinus syndrome status post permanent pacemaker placement, history of SVT, hypertension, hyperlipidemia, hypothyroidism, degenerative disc disease with chronic back pain and bilateral lower extremity neuropathies, anxiety, PTSD, and cannabinoid use. He presented to the emergency department with a chief complaint of chest pain. Patient reports feeling at his baseline until he suddenly awoken from sleep around 2 AM with a sharp stabbing pain to his midsternal chest radiating into his left shoulder and arm. Patient reports this pain took his breath away and was accompanied by diaphoresis, dizziness, and nausea. Patient reports he was able to get himself up to the bathroom and then out to the couch. Patient reports he laid on the couch and believes he lost consciousness or passed out because he was very dizzy and when he woke up still lying on the couch his chest pain radiating to his left shoulder was still there but not as severe. He denies having any fevers, chills, headache, changes in vision or hearing, palpitations, shortness of breath other than feeling as if his breath was taken away from the initial pain, cough or congestion, abdominal pain, episodes of vomiting, or experiencing any changes in numbness/tingling in his lower extremities. Upon arrival to the emergency department patient underwent full evaluation. Vital signs revealing blood pressure 132/85, heart rate 72, respiratory rate 18, temp 98.2 F, and SpO2 of 97% on room air. EKG was completed showing normal sinus rhythm with PVCs, no significant T wave or ST abnormalities concerning for acute ischemia upon personal review and interpretation. Chest x-ray completed negative for acute cardiopulmonary process. Labs completed and reviewed. CBC showing leukocytosis with WBC count of 14.4. Coagulation profile showing elevated D-dimer of 0.73. BMP showing hyperchloremia with chloride of 109 and hypocarbia with bicarb of 19. Blood glucose was 113. Magnesium slightly low at 1.7. Liver profile unremarkable. Troponin negative at less than 0.012. TSH normal findings at 0.768. proBNP 29. Influenza A, influenza B, RSV, and COVID PCR were all negative. CTA chest was completed negative for acute pulmonary emboli and negative for acute cardi opulmonary process. Patient given aspirin 324 mg p.o. x 1 dose along with sublingual nitro and Zofran. He was admitted under our services with consultation to cardiology. Review of systems: Pertinent positives and negatives as discussed in HPI, a complete review of systems was performed and all other systems are negative. Physical exam: Vital signs reviewed and stable. General: Nontoxic, no distress and appears stated age. Derm: Skin warm and dry, normal coloration for ethnicity. Head: Atraumatic, normocephalic and symmetric. Eyes: EOMs intact, no lid lag, and anicteric sclera Mouth: no lip lesions, mucus membranes moist Cardiovascular: regular rate and rhythm with normal S1S2, no murmur, positive posterior tibial pulses bilaterally, and cap refill < 2 seconds. Pacemaker left lateral chest. Lungs: Respirations even, regular, and unlabored on room air. Lungs CTA bilaterally, no rhonchi, no rales, no wheezing, and no accessory muscle usage. Abdominal: soft, nontender to palpation, no guarding, no appreciable organomegaly Ext: ROM intact. No gross muscle atrophy, no edema, no contractures Neuro: Speech clear, face symmetrical and CN II-XII grossly intact with no noted focal neuro deficits Psych: Alert and oriented to person, place, time, and situation. Appropriate and pleasant affect. Assessment and Plan of Care: Chest pain, rule out acute coronary event Paroxysmal atrial fibrillation History of sick sinus syndrome status post pacemaker placement Hypertension Hyperlipidemia -Cardiology consulted, appreciate recommendations -Telemetry monitoring -Trend troponins -Cardiac diet, NPO at midnight -Orders placed for continuation of home cardiac medication regimen consisting of aspirin 81 mg daily, atorvastatin 40 mg nightly, and valsartan 320 mg nightly, and Ivabrandine Hcl 7.5 mg twice daily. -Obtain pacemaker interrogation -Lipid profile with a.m. labs. -Echocardiogram Hypothyroidism -Continue daily medication regimen with levothyroxine 125 mcg daily. -TSH normal findings at 0.768. Data and imaging reviewed: As stated above in HPI The patient is admitted with an anticipated less than 2 midnight stay for evaluation of chest pain CODE STATUS: Full code DVT prophylaxis: Heparin Anticipated discharge date: Clinical course to determine Anticipated discharge place: Clinical course to determine Patient was seen independently by Nurse Practitioner. This document was prepared using [employer] dictation software. Please allow for errors in creative services specialist while rare they do occur. This patient was seen independently by my colleague Damien CARVER. I agree with the assessment and plan. Past Medical History Past Medical History: Atrial Fibrillation, Hearing Disorder / Deafness, Hyperlipidemia, Hypertension, Musculoskeletal Disorder, Osteoarthritis (OA), Thyroid Disorder Additional Past Medical History / Comment(s): "Hearts electrical system doesn't work right", DDD, chronic mid back pain with numbness to bilateral legs, hard of hearing. History of Any Multi-Drug Resistant Organisms: None Reported Past Surgical History: Orthopedic Surgery, Pacemaker Additional Past Surgical History / Comment(s): Left elbow reconstruction as a child, surgery for back lipoma, Pacemaker replaced in 2017-[employer] left chest. Past Anesthesia/Blood Transfusion Reactions: Motion Sickness Additional Past Anesthesia/Blood Transfusion Reaction / Comment(s): No hx blood transfusion. Type of Cardiac Device: Permanent Pacemaker Device Placement Date:: Past Psychological History: Anxiety, Depression Smoking Status: Former smoker Past Alcohol Use History: None Reported Past Drug Use History: Marijuana - Past Family History Father Additional Family Medical History / Comment(s): at age 26 from heart problems. Mother Family Medical History: Cancer Additional Family Medical History / Comment(s): CABG X3. Medications and Allergies Home Medications Medication Instructions Recorded Confirmed Type Atorvastatin [Lipitor] 40 mg PO HS 07/02/14 12/05/23 History HYDROcodone/APAP 7.5-325MG [[place] 1 tab PO Q8H PRN 09/03/15 12/05/23 History 7.5-325] Ivabradine HCl [Corlanor] 7.5 mg PO BID 10/05/21 12/05/23 History Levothyroxine Sodium 125 mcg PO QAM 10/05/21 12/05/23 History Cyclobenzaprine [Flexeril] 10 mg PO BID PRN 12/05/23 12/05/23 History Ibuprofen [Motrin] 800 mg PO Q8H PRN 12/05/23 12/05/23 History Mirtazapine 7.5 mg PO HS PRN 12/05/23 12/05/23 History Valsartan [Diovan] 320 mg PO HS 12/05/23 12/05/23 History Allergies Allergy/AdvReac Type Severity Reaction Status Date / Time No Known Allergies Allergy Verified 12/05/23 11:21 Physical Exam Vitals: Vital Signs Temp Pulse Resp BP Pulse Ox 12/05/23 08:07 98.1 F 72 18 132/85 97 Intake and Output 12/04/23 12/05/23 12/05/23 22:59 06:59 14:59 Other: Weight 86.183 kg Results CBC & Chem 7: 12/06/23 05:36 12/06/23 05:36 Labs: Abnormal Lab Results - Last 24 Hours (Table) 12/05/23 12/05/23 12/05/23 Range/Units 08:34 08:34 08:34 WBC 14.4 H (3.8-10.6) k/uL RBC 5.91 H (4.30-5.90) m/uL Neutrophils # 13.4 H (1.3-7.7) k/uL Lymphocytes # 0.6 L (1.0-4.8) k/uL D-Dimer 0.73 H (<0.60) mg/L FEU Chloride 109 H (98-107) mmol/L Carbon Dioxide 19 L (22-30) mmol/L Glucose 113 H (74-99) mg/dL
[2023-12-05] MEDS ORDERED: MIRTAZAPINE 15 MG TAB PO PRN (12:11)
--- NOTE | 2023-12-05 12:39 | P.CRDCN ---
History of Present Illness Consult date: 12/05/23 Consult reason: chest pain History of present illness: History of present illness: This is a 53-year-old male patient of Dr. Gomez with past medical history of SVT, PAF status post PVI, hypertension, sick sinus syndrome status post pacemaker implantation. We have been asked to evaluate the patient for chest pain. Patient states that around 2 AM he started having massive pain in his chest. He went to the bathroom when he went back to the bedroom he was feeling dizzy. He thought he was going to fall down so he went to the couch and ended up waking up on the couch. He states that he had a complete syncopal episodes and loss of consciousness. He also had some nausea and palpitations. He states the pain is in the left sternal area and goes to the left shoulder and upper arm. He does exercise on a regular basis but does not have any shortness of breath or chest pain with this. He denies any history of diabetes. He had no cough or fever. No history of asthma or COPD. He denies having any blood in his stools or urine. His pain is gone now he states he only feels fatigued. Patient states that he quit smoking 20 years ago. EKG sinus rhythm with PACs Chest x-ray: No acute process CTA no PE WBC 14.4, hemoglobin 15.4, platelet count 184. INR 1, D-dimer 0.73. Sodium 137, potassium 4.5, chloride 109, CO2 19, BUN 20 creatinine 0.87. Glucose 113. Troponin negative x 1. Liver function tests are within normal limits. Magnesium 1.7. TSH 0.768. Influenza A, influenza B, RSV, COVID-19 not detected. Home cardiac medications: Atorvastatin 40 mg at bedtime, valsartan 320 mg at bedtime, also on levothyroxine 125 mcg daily Echocardiogram performed in the office on 05/13/2023 revealed EF of 55%, mild tricuspid regurgitation, normal pulmonary artery systolic pressure. Cardiolite stress test performed 11/04/2021 in the office revealed excellent exercise tolerance. Normal myocardial perfusion and function. Patient had chest discomfort at peak exercise with frequent ventricular ectopy. Dual-chamber pacemaker generator replacement 2017 [employer] Accolade. Review Of Systems: At the time of my exam: CONSTITUTIONAL: Denies fever or chills. Reports fatigue. HEENT: Denies blurred vision, vision changes, or eye pain. Denies hemoptysis CARDIOVASCULAR: Denies chest pain. Denies orthopnea. Denies PND. Denies p alpitations RESPIRATORY: Denies shortness of breath. GASTROINTESTINAL: Denies abdominal pain. Denies nausea or vomiting. HEMATOLOGIC: Denies bleeding disorders. GENITOURINARY: Denies any blood in urine. SKIN: Denies pruitis. Denies rash. Physical examination: Gen: This is a 53-year-old male in no acute distress VS: reviewed the nurse for room to place HEENT: Head is atraumatic, normocephalic. Pupils equal, round. Sclerae is anicteric. NECK: Supple. No JVD. LUNGS: Clear to auscultation. No wheezes or rhonchi. No intercostal retractions. HEART: Regular rate and rhythm. No murmur. ABDOMEN: Soft No tenderness. EXTREMITIES: No pedal edema. No calf tenderness. NEUROLOGICAL: Patient is awake, alert and oriented x3. Assessment: Chest pain, rule out acute coronary syndrome History of SVT Paroxysmal atrial fibrillation Hypertension Sick sinus syndrome status post pacemaker Plan: Resume patient's home cardiac medications Interrogate pacemaker Obtain 2-D echocardiogram and Doppler study to assess cardiac structure and function Schedule patient for stress echo tomorrow Further recommendations to follow based upon clinical course Thank you kindly for this consultation. Nurse practitioner note has been reviewed, I agree with documented findings and plan of care. Patient was seen and examined. Past Medical History Past Medical History: Atrial Fibrillation, Hearing Disorder / Deafness, Hyperlipidemia, Hypertension, Musculoskeletal Disorder, Osteoarthritis (OA), Thyroid Disorder Additional Past Medical History / Comment(s): "Hearts electrical system doesn't work right", DDD, chronic mid back pain with numbness to bilateral legs, hard of hearing. History of Any Multi-Drug Resistant Organisms: None Reported Past Surgical History: Orthopedic Surgery, Pacemaker Additional Past Surgical History / Comment(s): Left elbow reconstruction as a child, surgery for back lipoma, Pacemaker replaced in 2017-[employer] left chest. Past Anesthesia/Blood Transfusion Reactions: Motion Sickness Additional Past Anesthesia/Blood Transfusion Reaction / Comment(s): No hx blood transfusion. Type of Cardiac Device: Permanent Pacemaker Device Placement Date:: Past Psychological History: Anxiety, Depression Smoking Status: Former smoker Past Alcohol Use History: None Reported Past Drug Use History: Marijuana - Past Family History Father Additional Family Medical History / Comment(s): at age 26 from heart problems. Mother Family Medical History: Cancer Additional Family Medical History / Comment(s): CABG X3. Medications and Allergies Home Medications Medication Instructions Recorded Confirmed Type Atorvastatin [Lipitor] 40 mg PO HS 07/02/14 12/05/23 History HYDROcodone/APAP 7.5-325MG [[place] 1 tab PO Q8H PRN 09/03/15 12/05/23 History 7.5-325] Ivabradine HCl [Corlanor] 7.5 mg PO BID 10/05/21 12/05/23 History Levothyroxine Sodium 125 mcg PO QAM 10/05/21 12/05/23 History Cyclobenzaprine [Flexeril] 10 mg PO BID PRN 12/05/23 12/05/23 History Ibuprofen [Motrin] 800 mg PO Q8H PRN 12/05/23 12/05/23 History Mirtazapine 7.5 mg PO HS PRN 12/05/23 12/05/23 History Valsartan [Diovan] 320 mg PO HS 12/05/23 12/05/23 History Allergies Allergy/AdvReac Type Severity Reaction Status Date / Time No Known Allergies Allergy Verified 12/05/23 11:21 Physical Exam Vitals: Vital Signs Temp Pulse Resp BP Pulse Ox 12/05/23 08:07 98.1 F 72 18 132/85 97 Intake and Output 12/04/23 12/05/23 12/05/23 22:59 06:59 14:59 Other: Weight 86.183 kg Results 12/05/23 08:34 12/05/23 08:34 Cardiac Enzymes 12/05/23 12/05/23 Range/Units 08:34 08:34 AST 40 (17-59) U/L Troponin I <0.012 (0.000-0.034) ng/mL Coagulation 12/05/23 Range/Units 08:34 PT 10.6 (10.0-12.5) sec APTT 23.7 (22.0-30.0) sec CBC 12/05/23 Range/Units 08:34 WBC 14.4 H (3.8-10.6) k/uL RBC 5.91 H (4.30-5.90) m/uL Hgb 15.4 (13.0-17.5) gm/dL Hct 47.3 (39.0-53.0) % Plt Count 184 (150-450) k/uL Comprehensive Metabolic Panel 12/05/23 Range/Units 08:34 Sodium 137 (137-145) mmol/L Potassium 4.5 (3.5-5.1) mmol/L Chloride 109 H (98-107) mmol/L Carbon Dioxide 19 L (22-30) mmol/L BUN 20 (9-20) mg/dL Creatinine 0.87 (0.66-1.25) mg/dL Glucose 113 H (74-99) mg/dL Calcium 9.4 (8.4-10.2) mg/dL AST 40 (17-59) U/L ALT 30 (4-49) U/L Alkaline Phosphatase 73 (38-126) U/L Total Protein 6.9 (6.3-8.2) g/dL Albumin 4.4 (3.5-5.0) g/dL Current Medications Generic Name Dose Route Start Last Admin Trade Name Freq PRN Reason Stop Dose Admin Acetaminophen 650 mg 12/05/23 10:13 Acetaminophen Tab 325 Mg Tab PO Q6HR PRN Mild Pain or Fever > 100.5 Aspirin 81 mg 12/06/23 09:00 Aspirin 81 Mg PO DAILY [facility] Atorvastatin Calcium 40 mg 12/05/23 21:00 Atorvastatin 40 Mg Tab PO HS AME Heparin Sodium (Porcine) 5,000 unit 12/05/23 16:00 Heparin Sodium,Porcine 5,000 Unit/Ml 1 Ml Vial SQ Q8HR AME Naloxone HCl 0.2 mg 12/05/23 10:03 Naloxone 0.4 Mg/Ml 1 Ml Vial IV Q2M PRN Opioid Reversal Intake and Output 12/04/23 12/05/23 12/05/23 22:59 06:59 14:59 Other: Weight 86.183 kg Patient Weight 12/06/23 06:59 Weight 86.183 kg 12/05/23 08:34 12/05/23 08:34
[2023-12-05] MEDS: ACETAMINOPHEN TAB 325 MG TAB PO PRN (14:09)
[2023-12-05] MEDS: ONDANSETRON 4 MG/2 ML VIAL IVP STA (17:14)
[2023-12-05] MEDS: HEPARIN SODIUM,PORCINE 5,000 UNIT/ML 1 ML VIAL SQ SCH (17:15)
--- NOTE | 2023-12-05 17:55 | CA ---
Transthoracic Echo Report Name: Jose Barrera Age: 53 Gender: M : 1970 Exam Date: 12/05/2023 14:24 Exam Location: [place] [facility] Ht (in): 69 Wt (lb): 190 Ordering Physician: Jacqui Rodriguez Attending/Referring Phys: [id number], Michael [employer] Service Representative Mavis Leger RDCS Procedure CPT: Indications: LVF Cardiac Hx: Pacemaker Technical Quality: Fair Contrast 1: Total Dose (mL): Contrast 2: Total Dose (mL): MEASUREMENTS (Male / Female) Normal Values 2D ECHO LV Diastolic Diameter PLAX 5.4 cm 4.2 - 5.9 / 3.9 - 5.3 cm LV Systolic Diameter PLAX 3.5 cm IVS Diastolic Thickness 1.0 cm 0.6 - 1.0 / 0.6 - 0.9 cm LVPW Diastolic Thickness 1.0 cm 0.6 - 1.0 / 0.6 - 0.9 cm LV Relative Wall Thickness 0.4 RV Internal Dim ED PLAX 3.3 cm LA Systolic Diameter LX 3.5 cm 3.0 - 4.0 / 2.7 - 3.8 cm LV Diastolic Volume MOD 4C 134.0 cm??? LV Systolic Volume MOD 4C 58.7 cm??? LV Ejection Fraction MOD 4C 56.2 % LV Cardiac Index MOD 4C 2804.3 cm???/min???m??? LV Diastolic Length 4C 8.7 cm LV Systolic Length 4C 7.1 cm LV Diastolic Volume MOD 2C 139.0 cm??? LV Systolic Volume MOD 2C 55.5 cm??? LV Ejection Fraction MOD 2C 60.1 % LV Cardiac Index MOD 2C 3113.7 cm???/min???m??? LV Diastolic Length 2C 8.6 cm LV Systolic Length 2C 6.9 cm LA Volume 53.6 cm??? 18 - 58 / 22 - 52 cm??? LA Volume Index 25.9 cm???/m??? 16 - 28 cm???/m??? Aorta at Sinotubular Diameter 3.4 cm DOPPLER AV Peak Velocity 150.0 cm/s AV Peak Gradient 9.0 mmHg MV Area PHT 3.0 cm??? Mitral E Point Velocity 110.6 cm/s Mitral A Point Velocity 63.7 cm/s Mitral E to A Ratio 1.7 MV Deceleration Time 252.7 ms FINDINGS Left Ventricle Left ventricular ejection fraction is estimated at 55-60 %. Left ventricular cavity size normal. Left ventricular wall thickness normal. Normal left ventricular wall motion. Right Ventricle Mild right ventricular dilatation. Unable to estimate the right ventricular systolic pressure.catheter/pacemaker wire in the right ventricular cavity. Right Atrium Normal right atrial size. Left Atrium Mildly increased left atrial area. Mitral Valve Structurally normal mitral valve. No mitral stenosis, or prolapse.mild mitral regurgitation. Aortic Valve Trileaflet aortic valve. No aortic valve stenosis or regurgitation. Tricuspid Valve Structurally normal tricuspid valve. No tricuspid regurgitation. Pulmonic Valve Structurally normal pulmonic valve. Mild pulmonic regurgitation. Pericardium No pericardial effusion. Aorta Normal size aortic root and proximal ascending aorta. CONCLUSIONS 1. Normal left ventricle size and systolic function 2. Mild mitral and tricuspid regurgitation Previewed by: Dr. Renetta Hill MD (Electronically Signed) Final Date: 05 December 2023 17:54
[2023-12-05] MEDS: MAGNESIUM OXIDE 400 MG TAB PO STA (18:46)
[2023-12-05] MEDS: CYCLOBENZAPRINE 10 MG TAB PO PRN (22:03)
[2023-12-05] MEDS: ATORVASTATIN 40 MG TAB PO SCH (22:03)
[2023-12-05] MEDS: VALSARTAN 160 MG TAB PO SCH (22:03)
[2023-12-05] MEDS: IVABRADINE HCL 7.5 MG PO SCH (23:38)
[2023-12-05 23:43] VITALS: RESP 16
[2023-12-06] MEDS: LEVOTHYROXINE 125 MCG TAB PO SCH (06:43)
[2023-12-06 08:44] LABS: Basophils # (A) 0.03 X 10*3/uL (0.00-0.10); Basophils % (A) 0.5 %; Eosinophils # (A) 0.05 X 10*3/uL (0.04-0.35); Eosinophils % (A) 0.8 %; HCT 45.3 % (39.6-50.0); HGB 14.6 g/dL (13.0-17.0); Lymphocytes # (A) 1.01 X 10*3/uL (0.90-5.00); Lymphocytes % (A) 15.6 %; MCH 25.7 pg (27.0-32.0); MCHC 32.2 g/dL (32.0-37.0); MCV 79.9 FL (80.0-97.0); Mean Platelet Volume 10.6 FL (9.5-12.2); Monocytes # (A) 0.78 X 10*3/uL (0.20-1.00); NRBC Per 100 WBC 0 X 10*3/uL (0.00-0.01); Neutrophils % (A) 70.8 %; Platelet Count 196 X 10*3/uL (140-440); RBC 5.67 X 10*6/uL (4.40-5.60); RDW 14.2 % (11.5-14.5); WBC 6.49 X 10*3/uL (4.50-10.00)
[2023-12-06 08:50] LABS: Blood Urea Nitrogen 12.1 mg/dL (9.0-27.0); Calcium 9.2 mg/dL (8.7-10.3); Carbon Dioxide 28.1 mmol/L (21.6-31.8); Chloride 106 mmol/L (96-109); Glucose 104 mg/dL (70-110); Potassium 4.5 mmol/L (3.5-5.5); Sodium 141 mmol/L (135-145)
--- NOTE | 2023-12-06 09:40 | P.PN ---
Subjective Progress Note Date: 12/06/23 Consult reason: chest pain History of present illness: History of present illness: This is a 53-year-old male patient of Dr. Gomez with past medical history of SVT, PAF status post PVI, hypertension, sick sinus syndrome status post pacemaker implantation. We have been asked to evaluate the patient for chest pain. Patient states that around 2 AM he started having massive pain in his chest. He went to the bathroom when he went back to the bedroom he was feeling dizzy. He thought he was going to fall down so he went to the couch and ended up waking up on the couch. He states that he had a complete syncopal episodes and loss of consciousness. He also had some nausea and palpitations. He states the pain is in the left sternal area and goes to the left shoulder and upper arm. He does exercise on a regular basis but does not have any shortness of breath or chest pain with this. He denies any history of diabetes. He had no cough or fever. No history of asthma or COPD. He denies having any blood in his stools or urine. His pain is gone now he states he only feels fatigued. Patient states that he quit smoking 20 years ago. EKG sinus rhythm with PACs Chest x-ray: No acute process CTA no PE WBC 14.4, hemoglobin 15.4, platelet count 184. INR 1, D-dimer 0.73. Sodium 137, potassium 4.5, chloride 109, CO2 19, BUN 20 creatinine 0.87. Glucose 113. Troponin negative x 1. Liver function tests are within normal limits. Magnesium 1.7. TSH 0.768. Influenza A, influenza B, RSV, COVID-19 not detected. Home cardiac medications: Atorvastatin 40 mg at bedtime, valsartan 320 mg at bedtime, also on levothyroxine 125 mcg daily Echocardiogram performed in the office on 05/13/2023 revealed EF of 55%, mild tricuspid regurgitation, normal pulmonary artery systolic pressure. Cardiolite stress test performed 11/04/2021 in the office revealed excellent exercise tolerance. Normal myocardial perfusion and function. Patient had chest discomfort at peak exercise with frequent ventricular ectopy. Dual-chamber pacemaker generator replacement 2016 [employer] Accolade. 12/06 Echocardiogram reveals EF of 55 to 60%, mild mitral and tricuspid regurgitation. Results have been reviewed with the patient. He states he has not had any further chest pain or shortness of breath he had a good night. Reviewed interrogation on his pacemaker and there was short episode of atrial fibrillation on 12/04 which may have contributed to his symptoms. Physical examination: Gen: This is a 53-year-old male in no acute distress VS: reviewed the nurse for room to place HEENT: Head is atraumatic, normocephalic. Pupils equal, round. Sclerae is a nicteric. LUNGS: Clear to auscultation. No wheezes or rhonchi. No intercostal retractions. HEART: Regular rate and rhythm. No murmur. EXTREMITIES: No pedal edema. No calf tenderness. NEUROLOGICAL: Patient is awake, alert and oriented x3. Assessment: Chest pain, rule out acute coronary syndrome History of SVT Paroxysmal atrial fibrillation with brief episode on 12/04 per pacemaker interrogation Hypertension Sick sinus syndrome status post pacemaker Plan: Continue patient's home cardiac medications Obtain stress echo If stress test is unremarkable, patient is cleared for discharge from cardiology May follow-up with Dr. Gomez in 1 to 2 weeks. Nurse practitioner note has been reviewed, I agree with documented findings and plan of care. Patient was seen and examined. Objective - Vital Signs Vital signs: Vital Signs Temp 98.3 F 12/06/23 07:00 Pulse 67 12/06/23 07:00 Resp 16 12/06/23 07:00 BP 160/82 12/06/23 07:00 Pulse Ox 99 12/06/23 07:00 FiO2 Intake & Output 12/05/23 12/06/23 12/06/23 18:59 06:59 18:59 Weight 86.183 kg 86.183 kg Other: Voiding Method Toilet # Voids 1 - Labs CBC & Chem 7: 12/06/23 05:36 12/06/23 05:36 Labs: Abnormal Lab Results - Last 24 Hours (Table) 12/05/23 12/05/23 12/05/23 Range/Units 08:34 08:34 08:34 WBC 14.4 H (3.8-10.6) k/uL RBC 5.91 H (4.30-5.90) m/uL Neutrophils # 13.4 H (1.3-7.7) k/uL Lymphocytes # 0.6 L (1.0-4.8) k/uL D-Dimer 0.73 H (<0.60) mg/L FEU Chloride 109 H (98-107) mmol/L Carbon Dioxide 19 L (22-30) mmol/L Glucose 113 H (74-99) mg/dL
[2023-12-06] MEDS: ASPIRIN 81 MG PO SCH (09:43)
--- NOTE | 2023-12-06 12:54 | CA ---
Stress Echo Report Jose Barrera Age: 53 Gender: M : 1970 Exam Date: 12/06/2023 11:00 Exam Location: [facility] Ht (in): Wt (lb): Ordering Physician: Jacqui Rodriguez Referring Physician: Michael BROCK [employer] Cook: JULIANO, Technologist Procedure CPT: Indication: CP ICD-9 Codes: Rhythm: Patient History: Chest pain and hypertension Cardiac Medications: Medications in past 24 hours: Contrast: Stress Results Protocol: David Total dose(mL): Exercise Duration (min:sec): 9:[address] Depression (mm): 0 Angina Score: 0 Nettles Score: 9.82 METS: 11.3 Resting HR: 69 Resting BP: 141 / 82 Peak HR: 162 Peak BP: 210 / 82 Max Predicted HR: 167 97 % Max Predicted HR Target HR: 142 Double Product: [id number] Stress Summary: The patient's target heart rate was achieved BP Response: Normal Reason for Termination: Reached target heart rate or work-load Cardiac Symptoms: No symptoms ECG Analysis Resting ECG: Normal sinus rhythm, normal ECG Stress ECG: No abnormal ST/T wave changes with exercise Arrhythmia: Occasional PVCs Echo Analysis Resting Echo: Normal resting echocardiogram. Peak Echo Analysis: Normal treadmill stress echocardiogram. MEASUREMENTS (Male/Female) Normal Values CONCLUSIONS Patient falls into low-risk group (DTS >= +5). This associates the patient with an annual CV mortality <= 0.5%. 1. Good exercise tolerance with normal electrocardiographic response to exercise with occasional PVCs 2. Normal stress echocardiogram with no evidence of stress induced ischemia Dr. Renetta Hill MD (Electronically Signed) Final Date: 06 December 2023 12:54
--- NOTE | 2023-12-06 14:35 | P.DS ---
Providers Date of admission: 12/05/23 10:03 Expected date of discharge: 12/06/23 Attending physician: Christi Arboleda MD Consults: 12/05/23 10:13 Consult Physician Routine Consulting Provider: [facility] Consult Reason/Comments: chest pain Do you want consulting provider notified?: Yes [facility] Course: Discharge Diagnosis: Chest pain, acute coronary event ruled out. Troponins trended overnight all negative at less than 0.012 x 3 draws. Echocardiogram completed and report reviewed showing a preserved EF of 55 to 60% with mild mitral and tricuspid regurgitation otherwise no significant structural or valvular abnormalities. Pacemaker interrogation was completed and reviewed by conveyor operator reporting patient had short episode of atrial fibrillation on 12/04/2023 which may have contributed to his symptoms. Patient is currently free from any complaints at this time. He was evaluated by cardiology and taken for a stress echocardiogram. Stress echo was completed showing good exercise tolerance with normal ECG response to exercise with occasional PVCs and normal stress echocardiogram with no evidence of stress-induced ischemia. Patient cleared from cardiac perspective for discharge. He is medically stable for discharge at this time. Patient to follow-up outpatient with PCP in 1 to 2 days and with cardiology in 1 week. No medication changes were made during this admission. Continue medication regimen with aspirin 81 mg daily, atorvastatin 40 mg nightly, and valsartan 320 mg nightly, and Ivabrandine Hcl 7.5 mg twice daily. Paroxysmal atrial fibrillation History of sick sinus syndrome status post pacemaker placement Hypertension Hyperlipidemia Hypothyroidism. Continue daily medication regimen with levothyroxine 125 mcg daily.TSH normal findings at 0.768. Hospital Course: Patient is a very pleasant 53-year-old male with a past medical history of atrial fibrillation status postcardiac ablation not on anticoagulation, history sick sinus syndrome status post permanent pacemaker placement, history of SVT, hypertension, hyperlipidemia, hypothyroidism, degenerative disc disease with chronic back pain and bilateral lower extremity neuropathies, anxiety, PTSD, and cannabinoid use. He presented to the emergency department with a chief complaint of chest pain. Patient reports feeling at his baseline until he suddenly awoken from sleep around 2 AM with a sharp stabbing pain to his midsternal chest radiating into his left shoulder and arm. Patient reports this pain took his breath away and was accompanied by diaphoresis, dizziness, and nausea. Patient reports he was able to get himself up to the bathroom and then out to the couch. Patient reports he laid on the couch and believes he lost consciousness or passed out because he was very dizzy and when he woke up still lying on the couch his chest pain radiating to his left shoulder was still there but not as severe. He denies having any fevers, chills, headache, changes in vision or hearing, palpitations, shortness of breath other than feeling as if his breath was taken away from the initial pain, cough or congestion, abdominal pain, episodes of vomiting, or experiencing any changes in numbness/tingling in his lower extremities. Upon arrival to the emergency department patient underwent full evaluation. Vital signs revealing blood pressure 132/85, heart rate 72, respiratory rate 18, temp 98.2 F, and SpO2 of 97% on room air. EKG was completed showing normal sinus rhythm with PVCs, no significant T wave or ST abnormalities concerning for acute ischemia upon personal review and interpretation. Chest x-ray completed negative for acute cardiopulmonary process. Labs completed and reviewed. CBC showing leukocytosis with WBC count of 14.4. Coagulation profile showing elevated D-dimer of 0.73. BMP showing hyperchloremia with chloride of 109 and hypocarbia with bicarb of 19. Blood glucose was 113. Magnesium slightly low at 1.7. Liver profile unremarkable. Troponin negative at less than 0.012. TSH normal findings at 0.768. proBNP 29. Influenza A, influenza B, RSV, and COVID PCR were all negative. CTA chest was completed negative for acute pulmonary emboli and negative for acute cardiopulmonary process. Patient given aspirin 324 mg p.o. x 1 dose along with sublingual nitro and Zofran. He was admitted under our services with co nsultation to cardiology. Troponins trended overnight all negative at less than 0.012 x 3 draws. Echocardiogram completed and report reviewed showing a preserved EF of 55 to 60% with mild mitral and tricuspid regurgitation otherwise no significant structural or valvular abnormalities. Pacemaker interrogation was completed and reviewed by conveyor operator reporting patient had short episode of atrial fibrillation on 12/04/2023 which may have contributed to his symptoms. Patient is currently free from any complaints at this time. He was evaluated by cardiology and taken for a stress echocardiogram. Stress echo was completed showing good exercise tolerance with normal ECG response to exercise with occasional PVCs and normal stress echocardiogram with no evidence of stress- induced ischemia. Patient cleared from cardiac perspective for discharge. He is medically stable for discharge at this time. Patient to follow-up outpatient with PCP in 1 to 2 days and with cardiology in 1 week. No medication changes were made during this admission. Continue medication regimen with aspirin 81 mg daily, atorvastatin 40 mg nightly, and valsartan 320 mg nightly, and Ivabrandine Hcl 7.5 mg twice daily. Physical exam: Vital signs reviewed and stable. General: Nontoxic, no distress and appears stated age. Derm: Skin warm and dry, normal coloration for ethnicity. Head: Atraumatic, normocephalic and symmetric. Eyes: EOMs intact, no lid lag, and anicteric sclera Mouth: no lip lesions, mucus membranes moist Cardiovascular: regular rate and rhythm with normal S1S2, no murmur, positive posterior tibial pulses bilaterally, and cap refill < 2 seconds. Pacemaker left lateral chest. Lungs: Respirations even, regular, and unlabored on room air. Lungs CTA bilaterally, no rhonchi, no rales, no wheezing, and no accessory muscle usage. Abdominal: soft, nontender to palpation, no guarding, no appreciable organomegaly Ext: ROM intact. No gross muscle atrophy, no edema, no contractures Neuro: Speech clear, face symmetrical and CN II-XII grossly intact with no noted focal neuro deficits Psych: Alert and oriented to person, place, time, and situation. Appropriate and pleasant affect. A total of 31 minutes of time were spent preparing this complex discharge summary. Pt was discharged on 12/06/2023 at 2:20 PM. Patient was seen independently by Nurse Practitioner. This document was prepared using [employer] dictation software. Please allow for errors in direct marketing intern while rare they do occur. This patient was seen independently by my colleague Damien CARVER. I agree with the assessment and plan. Patient Condition at Discharge: Stable Plan - Discharge Summary New Discharge Prescriptions: Continue Atorvastatin [Lipitor] 40 mg PO HS HYDROcodone/APAP 7.5-325MG [[place] 7.5-325] 1 tab PO Q8H PRN PRN Reason: Pain Levothyroxine Sodium 125 mcg PO QAM Ivabradine HCl [Corlanor] 7.5 mg PO BID Mirtazapine 7.5 mg PO HS PRN PRN Reason: Insomnia Ibuprofen [Motrin] 800 mg PO Q8H PRN PRN Reason: Pain Valsartan [Diovan] 320 mg PO HS Cyclobenzaprine [Flexeril] 10 mg PO BID PRN PRN Reason: Muscle Spasm Discharge Medication List Atorvastatin [Lipitor] 40 mg PO HS 07/02/14 [History] HYDROcodone/APAP 7.5-325MG [[place] 7.5-325] 1 tab PO Q8H PRN 09/03/15 [History] Ivabradine HCl [Corlanor] 7.5 mg PO BID 10/05/21 [History] Levothyroxine Sodium 125 mcg PO QAM 10/05/21 [History] Cyclobenzaprine [Flexeril] 10 mg PO BID PRN 12/05/23 [History] Ibuprofen [Motrin] 800 mg PO Q8H PRN 12/05/23 [History] Mirtazapine 7.5 mg PO HS PRN 12/05/23 [History] Valsartan [Diovan] 320 mg PO HS 12/05/23 [History] Follow up Appointment(s)/Referral(s): Pritesh Gomez MD [STAFF PHYSICIAN] - 12/15/23 10:00 am Yogi Murguia DO [Primary Care Provider] - 1-2 days Patient Instructions/Handouts: Chest Pain (DC) Activity/Diet/Wound Care/Special Instructions: Activity: As tolerated. Take breaks as needed. Diet: Heart healthy and carb consistent diet. Avoid salts, or foods with hidden salts such as canned or boxed foods and frozen dinners. Extra salt makes your heart work harder and traps the fluid in your body for longer. Special Instructions: Take all of your medications as directed and remember to keep all of your doctor's appointments and follow-up as needed. Thank you for allowing us to participate in your care, it was truly a pleasure having you for our patient!!! Discharge Disposition: HOME SELF-CARE
[2023-12-06 14:46] VITALS: BP 165/94; PULSE 75; TEMP 98.9
== END 2023-12-06 14:45 | disposition home or self-care (01) ==
LOC: EC 08:06 → 6NMEDSUR 10:03
PROVIDERS: ADMIT Family Medicine; ATTEND Family Medicine
DX: R07.89 Other chest pain (principal); R42 Dizziness and giddiness; R11.0 Nausea; R61 Generalized hyperhidrosis; R00.2 Palpitations; I48.0 Paroxysmal atrial fibrillation; I49.5 Sick sinus syndrome; I10 Essential (primary) hypertension; E78.5 Hyperlipidemia, unspecified; E03.9 Hypothyroidism, unspecified; I47.10 Supraventricular tachycardia, unspecified; G89.29 Other chronic pain; M54.9 Dorsalgia, unspecified; F41.9 Anxiety disorder, unspecified; F43.10 Post-traumatic stress disorder, unspecified; E87.8 Other disorders of electrolyte and fluid balance, not elsewhere classified; H91.90 Unspecified hearing loss, unspecified ear; I08.1 Rheumatic disorders of both mitral and tricuspid valves; Z79.82 Long term (current) use of aspirin; Z79.899 Other long term (current) drug therapy; Z95.0 Presence of cardiac pacemaker; Z79.890 Hormone replacement therapy; Z11.52 Encounter for screening for COVID-19; Z11.59 Encounter for screening for other viral diseases; Z82.49 Family history of ischemic heart disease and other diseases of the circulatory system
CPT/HCPCS: 96372; 96361; 96374; 99285; 36415; 94760; 93005; 93306; 93351; 85379; 83880; 80053; 80048; 84443; 83735; 84484; 85025 ×2; 85610; 85730; 87636; 71046; 71275; G0378 ×2; J1644; J2405; Q9967

== ENCOUNTER → 2024-12-25 | Outpatient (CLI) | payer OTHER | END | disposition home or self-care (01) | LOC: LABWHC1 10:15 | PROVIDERS: ATTEND Nurse Practitioner Adult Health | DX: E03.9 Hypothyroidism, unspecified (principal) | CPT/HCPCS: 36415; 84443 ==